=== PATIENT | male | born 1955 | race Caucasian/White ===

== ENCOUNTER → 2020-06-14 13:35 | Outpatient (CLI) | payer BC, SELFPAY ==
--- NOTE | ~2020-06-14 | CT_ITS ---
EXAMINATION: CT abdomen pelvis wo/w con DATE: 06/14/2020 14:31 INDICATION: Hematuria TECHNIQUE: Computed tomography (CT) of the abdomen and pelvis was performed without intravenous contr ast. CT of the abdomen and pelvis was then performed with a total of 130 mL Omnipaque 350 intravenous contrast using a double-bolus technique for simultaneous opacification of the renal parenchyma and r enal collecting system. The dose-length product (DLP) was 2090.27 mGy-cm. Automated exposure control and iterative reconstruction technique were employed. COMPARISON: None FINDINGS: The lung bases are clear. The heart size is normal. Liver, spleen, pancreas, gallbladder, a nd adrenal glands are normal. No stones are identified in the kidneys, ureters, or bladder. There is no hydronephrosis or hydroureter. There is no hydronephrosis or hydroureter. No suspicious renal or u rothelial lesion is identified. No pathologically enlarged abdominal or pelvic lymph nodes are identi fied. There is no free intraperitoneal gas or evidence of bowel obstruction. There is moderate lumbar spondylosis at L5-S1. Small sclerotic lesions in the T11 and L1 vertebral bodies likely reflect bone islands. There is a fat-containing left inguinal hernia. IMPRESSION: 1. No CT correlate for the patient's symptoms. No urinary tract calculi, hydronephrosis, hydroureter, or suspicious renal or urothelial lesion. Reviewed, dictated and finalized at location A. IMPRESSION: 1. No CT correlate for the patient's symptoms. No urinary tract calculi, hydron ephrosis, hydroureter, or suspicious renal or urothelial lesion.
[2020-06-14 14:06] LABS: Estimated Glomerular Filt Rate 56
== END ==
PROVIDERS: PCP Family Medicine; Visit Provider Physician Assistant
DX: R31.9 Hematuria, unspecified (principal)
CPT/HCPCS: 36415; 74178; Q9967

== ENCOUNTER 2023-12-29 11:43 | Outpatient (CLI) | payer MEDICARE, SELFPAY ==
--- NOTE | 2023-12-29 12:52 | ECG_ITS ---
Measurements Intervals [place] Rate: 46 P: 38 ME: 158 QRS: 56 QRSD: 100 T: 55 QT: 418 QTc: 367 Interpretive Statements SINUS BRADYCARDIA WITH SINUS ARRHYTHMIA BORDERLINE ECG NO PREVIOUS ECG AVAILABLE FOR COMPARISON Electronically Signed On 12-29-2023 16:58:59 GARBAGE WORKER by Osmany Brito M.D.
[2023-12-29 13:14] LABS: Basophils Absolute Auto 0.1 K/mm3 (0.0-0.1); Basophils Percent Auto 0.7 % (0.2-1.2); Eosinophils Absolute Auto 0.3 K/mm3 (0-0.3); Eosinophils Percent Auto 3.8 % (0-4.4); Hematocrit 43.6 % (42.0-52.0); Hemoglobin 14.5 g/dL (14.0-18.0); Immature Granulocyte Absolute 0.02 K/mm3 (0.00-0.031); Immature Granulocyte Percent A 0.2 % (0-0.5); Lymphocytes Percent Auto 25.1 % (18.3-44.2); Mean Corpuscular HGB Conc 33.3 g/dl (32-36); Mean Corpuscular Hemoglobin 30.8 pg (26-34); Mean Corpuscular Volume 92.6 fl (80-100); Mean Platelet Volume 10.1 fl (7.4-10.4); Monocytes Absolute Auto 0.7 K/mm3 (0.1-0.6); Monocytes Percent Auto 8.4 % (2.6-8.5); Neutrophils Absolute Auto 5.2 K/mm3 (1.3-6.7); Neutrophils Percent Auto 61.8 % (45.5-73.1); Platelet Count Result 183 k/mm3 (150-375); Red Blood Count 4.71 M/mm3 (4.6-6.20); White Blood Count 8.4 K/mm3 (4.5-10.0)
[2023-12-29 13:22] LABS: INR 1.1; Prothrombin Time 14.7 Seconds (11.1-14.7)
[2023-12-29 13:23] LABS: Partial Thromboplastin Time 29.6 SECONDS (22.3-36.8)
[2023-12-29 13:28] LABS: Alanine Aminotransferase 38 U/L (6-50); Albumin Level 4.3 g/dL (3.5-5.1); Alkaline Phosphatase 106 U/L (38-126); Anion Gap 6 mmol/L (8-16); Aspartate Amino Transferase 35 U/L (17-59); Bilirubin,Total 0.6 mg/dL (0.2-1.3); Blood Urea Nitrogen 21 mg/dL (9-20); Calcium 9.8 mg/dL (8.4-10.2); Carbon Dioxide 31 mmol/L (22-30); Chloride 100 mmol/L (98-107); Estimated Glomerular Filt Rate 51; Glucose 114 mg/dL (65-110); Potassium 4.2 mmol/L (3.4-5.0); Sodium 137 mmol/L (137-145)
== END 2023-12-29 11:44 | disposition home or self-care (01) ==
LOC: ANHSURGERY 11:50
PROVIDERS: PCP Internal Medicine; Visit Provider Urology
DX: C61 Malignant neoplasm of prostate (principal); I10 Essential (primary) hypertension; Z01.818 Encounter for other preprocedural examination; R94.31 Abnormal electrocardiogram [ECG] [EKG]
CPT/HCPCS: 36415; 80053; 85025; 85610; 85730; 87086; 93005

== ENCOUNTER 2024-01-13 16:30 | Inpatient (IN) | payer MEDICARE, SELFPAY ==
[2023-12-29 12:03] VITALS: BP 131/61; PULSE 42; RESP 16; TEMP 36.8; O2SAT 99; BMI 29.0
--- NOTE | 2023-12-29 12:21 | PC.NURSE ---
Report to the Outpatient Waiting Room, entrance under the green pavilion located off [facility], at time ___6:00AM____ on date __01/13/24 . Planned Procedure Time: __7:30AM . Time changes happen often and if your time is changed the preop area will call you the afternoon before. - You and your visitor will be asked to self-screen and do not enter if you have any COVID symptoms. - A mask is optional within the hospital at this time. Patients may have clear liquids (water, carbonated beverages, clear teas, apple juice) until 3 hours prior to surgery with a maximum of 20 ounces. - No food from midnight until time of surgery. Take the following medications with a SIP of water the morning of surgery: ___NONE DO NOT STOP ANY OF YOUR OTHER PRESCRIPTION MEDICATIONS PRIOR TO SURGERY ?EXCEPT THE FOLLOWING Medications to discontinue per physician ____HOLD ALL VITAMINS/SUPPLEMENTS 7 DAYS PRE-OP Date to take last dose___01/06/24 Please no make-up, nail spanish, hairspray, perfume, deodorant, or body powder the day of surgery. No jewelry (including any body piercings) or valuables the day of surgery, leave them at home. Please take a shower or bath the night before, or the morning of, surgery with an antibacterial soap. Wear comfortable, loose fitting clothing. - Jewelry must be removed prior to entering the operating room. Rings and piercings that are not removed may be cut off. - The hospital will not accept responsibility for valuables. - Please leave all valuables, including medications, at home the day of surgery. If you are going home after surgery, a licensed o[employer] hazmat company driver must drive you home. - NO public transportation without another adult if you receive anesthesia. - We recommend that an adult stay with you for 24 hours following discharge. - We also recommend that you do not drive, make important decision, drink alcoholic beverages, or take any drugs that were not prescribed by your health care provider for at least 24 hours after your discharge time. Follow any additional instructions given to you from your surgeon. If you or anyone in your household have experienced Covid symptoms in the past week, please notify your surgeon or the nurse liaison at the phone number below for possible testing. Telephone instructions given to ___PATIENT & WIFE and asked if any additional questions and then verbalized understanding. Patient advised to call surgeon office or pre surgery nurse liaison [phone] if any additional questions.
[2024-01-13] VITALS (14 sets, daily range): BP systolic 99–158; BP diastolic 61–80; PULSE 47–72; RESP 11–18; TEMP 36.2–37.1; O2SAT 96–100
[2024-01-13] MEDS: LACTATED RINGERS 1,000 ML 30 ML IV CONT ×2 (07:00→13:30)
--- NOTE | 2024-01-13 07:05 | WPDHPUPDATE1 ---
History and Physical Update Update Date/Time: 01/13/24 07:05 History and Physical has been reviewed, including an updated exam of the patient. There are NO changes in the patient's condition. Risks, benefits, and alternatives have been discussed and questions answered. Patient agrees to proceed with procedure. Proceed with robotic assist nerve sparing prostatectomy with possible plnd.
--- NOTE | 2024-01-13 07:13 | WPDANESEPPF ---
Anes - Initial Pre Proc Eval Procedure: Operation Date: 01/13/24 07:30 Proposed Procedures p Robotic Nerve Sparing Prostatectomy with Pelvic Lymph Node Dissection - Ayaz Norton MD Date/Time: 01/13/24 07:13 Surgeon: Ayaz Norton MD Pre Op Diagnosis: prostate cancer Patient Data Age: 68 Gender: M Height: 1.71 m Weight: 85.2 kg Last Vital Signs Temp 98.2 F 12/29/23 12:03 Pulse 42 L 12/29/23 12:03 Resp 16 12/29/23 12:03 BP 131/61 12/29/23 12:03 Pulse Ox 99 12/29/23 12:03 O2 Del Method Room Air 12/29/23 12:03 Allergies Allergy/AdvReac Type Severity Reaction Status Date / Time lisinopril AdvReac Unknown Cough Verified 12/29/23 11:58 Home Medications Medication Instructions Recorded Confirmed Type rosuvastatin 5 mg tablet (Crestor) 5 mg PO DAILY #90 tabs 07/10/20 12/29/23 Rx ascorbic acid (vitamin C) 500 mg 500 mg PO 5XW 12/29/23 12/29/23 History capsule cholecalciferol (vitamin D3) 50 50 mcg PO 5XW 12/29/23 12/29/23 History mcg (2,000 unit) capsule multivitamin 1 tablet PO 2XW 12/29/23 12/29/23 History valsartan 80 1 tablet PO QAM 12/29/23 12/29/23 History mg-hydrochlorothiazide 12.5 mg tablet zinc 25 mg tablet 30 mg PO 5XW 12/29/23 12/29/23 History Patient hx anesthesia problems: none Family hx anesthesia problems: none Results Review: All pre-operative results and documents have been reviewed as part of the pre-operative evaluation. [facility] Family History Family History Mother Diabetes mellitus Family history of obesity Depression Hypertension Father Patient's father is in good health Grandparent Carcinoma of colon Social History Social History Smoking status: Never smoker Alcohol intake: current Living arrangements: with family Additional living arrangements comments: Spiritual care concerns: No Anes - Eval Final PreProcedure Day of Procedure 01/13/24 07:13 Patient weight: normal Heart: bradycardia Lungs: clear to auscultation Airway: Mallampati scale class III Neurological: alert and oriented Last oral intake: >/= 8 hours ASA classification: III Emergent: no Anesthetic plan: proceed Anesthesia type and monitoring: general ETT and standard monitoring Results Review: All pre-operative results and documents have been reviewed as part of the pre-operative evaluation. Informed Consent: The patient's anesthetic plan and its attendant risks and benefits were discussed with the patient/family/POA. Questions were solicited and answers provided to the satisfaction of the patient/family/POA.
[2024-01-13] MEDS: ceFAZolin 2 GM/D5W 50 ML 2 GM/50 ML BAG IVPB (07:36)
[2024-01-13] MEDS: BUPivacaine HCL 0.5% 10 ML AMP 30 ML INFILTRATE (08:45)
[2024-01-13] MEDS: ceFAZolin SODIUM 1 GM VIAL IV PUSH (11:29)
--- NOTE | 2024-01-13 13:02 | W.PM.PROC2 ---
Procedure Note - Detailed Date of Procedure 01/13/24 Pre-op Diagnosis prostate cancer Post-op Diagnosis Same Procedure Performed Extensive adhesiolysis, robotic assisted nerve-sparing prostatectomy with left pelvic lymph node dissection Surgeon Ayaz Norton MD Anesthesia General Description of Procedure Patient is taken to the operative suite correctly identified. Once anesthesia was obtained was placed in dorsal lithotomy position prepped draped usual sterile fashion. Sixteen Hungarian Polanco was inserted the bladder. Supraumbilical incision was made carried down to the rectus fascia. Veress needle was inserted the abdomen was insufflated to 15 mm of pressure. Camera port was placed under direct vision. Upon placing the camera was noted they had a significant amount of omental adhesions to the anterior abdominal wall essentially encompassing the entire right side of the abdomen. As such I placed our working ports on the left. I was able to reposition the camera in find safe area to place the other 2 working ports on the right. These were placed. Patient was placed in steep Trendelenburg position and the robot was docked. Attention was then given to the [place]. All of these adhesions of the omentum were taken down. Was then noted that his colon was also adhered to the right lateral wall. This also was taken down. A posterior approach was then performed. Seminal vesicles were dissected out in their entirety in the vas were transected. The plane between the prostate and rectum was developed. His anatomy was distorted from the significant amount of adhesions to the above to her abdominal wall. We still were able to take down the bladder in a standard fashion. Space of Retzius was developed bilaterally. Puboprostatic were taken down the dorsal venous complex was isolated using 0 Vicryl. This was secured to the pubic bone which was protuberant. Patient has an extremely large prostate. The bladder neck was difficult to visualize initially. We were able take this down to the bladder neck and perform a bladder neck sparing procedure. Posterior fascia was incised to expose the previously dissected seminal vesicles and vas. Pedicles were taken and clipped. Bilateral nerve-sparing was performed. Prostate was then dissected all the way to the location of the dorsal venous complex. Dorsal venous complex was transected. Urethra was transected. Specimen was placed in Endo-Catch bag. Pelvic lymph node was then does performed on the left side with the boundaries being obturator nerve, external iliac vein, Dayton's ligament, and bifurcation of the vessels. Surgicel was placed in the obturator fossa. Specimen was placed in Endo-Catch bag. A Heber stitch was then placed using 0 Vicryl. Urethral stump was anastomosed to the bladder neck. There was good approximation of mucosa. Sixteen Hungarian Polanco was placed with 10 cc in the balloon. The bladder irrigated well without any evidence of extravasation. PAULIE drain was placed through the 4th working port site. All lap count needle counts sponge counts were correct. The robot was undocked. The midline incision was extended and the specimen was brought out through that. Rectus fascia was closed using 0 Vicryl running fashion. Subcuticular stitches were placed. Patient tolerated procedure well without any complications was taken recovery stable condition. This completes dictation. Please send a copy of op note to my office. Estimated Blood Loss 100 Drains Yes Packing No Pathology Yes Complications No immediate complications Condition Stable Disposition PACU
[2024-01-13] MEDS: PROPARACAINE HCL 0.5% 15 ML OPHTH SOLN 1 DROP EACH EYE (14:38)
[2024-01-13] MEDS: ARTIFICIAL TEARS OPHTH SOLN 15 ML BOTTLE 1 DROP EACH EYE ×2 (14:42→16:43)
[2024-01-13] MEDS: DICLOFENAC SODIUM 0.1% OPHTH SOLN 2.5 ML BOTTLE 1 DROP EACH EYE ×2 (14:42→20:23)
[2024-01-13 14:59] LABS: Glucose Point of Care 190 mg/dl (65-105)
--- NOTE | 2024-01-13 14:59 | SUR.PHASEI ---
1455: Patient meets PACU discharge criteria, unit bed unavailable at this time. Patient placed in extended recovery status.
[2024-01-13] MEDS: LACTATED RINGERS 1,000 ML 125 ML IV CONT (16:43)
[2024-01-13] MEDS: DOCUSATE SODIUM 100 MG CAPSULE PO (16:59)
[2024-01-13] MEDS: HYDROcodone/acetaminophen (*CRX) 5-325 MG TABLET 2 TAB PO (20:22)
[2024-01-13] MEDS: MORPHINE SULFATE (*CRX) 2 MG/ML INJ 1 MG IV PUSH ×2 (20:23→22:17)
[2024-01-13] MEDS: KETOROLAC 15 MG/ML VIAL (*BKC) IV PUSH (22:21)
[2024-01-14 02:15] VITALS: BP 132/53; PULSE 62; RESP 14; TEMP 36.9; O2SAT 100
[2024-01-14] MEDS: HYDROcodone/acetaminophen (*CRX) 5-325 MG TABLET 2 TAB PO ×2 (02:40→14:04)
[2024-01-14] MEDS: MORPHINE SULFATE (*CRX) 2 MG/ML INJ 1 MG IV PUSH (02:40)
[2024-01-14] MEDS: DICLOFENAC SODIUM 0.1% OPHTH SOLN 2.5 ML BOTTLE 1 DROP EACH EYE ×2 (05:44→14:59)
[2024-01-14 05:46] VITALS: BP 112/63; PULSE 60; RESP 13; TEMP 37.1; O2SAT 97
[2024-01-14 06:03] LABS: Hemoglobin 12.4 g/dL (14.0-18.0)
[2024-01-14 06:59] LABS: Anion Gap 7 mmol/L (8-16); Blood Urea Nitrogen 28 mg/dL (9-20); Calcium 8.7 mg/dL (8.4-10.2); Carbon Dioxide 26 mmol/L (22-30); Chloride 95 mmol/L (98-107); Estimated CRCL calculation 44 ml/min; Estimated Glomerular Filt Rate 51; Glucose 193 mg/dL (65-110); Potassium 4.2 mmol/L (3.4-5.0); Sodium 128 mmol/L (137-145)
--- NOTE | 2024-01-14 07:49 | WPDUROPN2 ---
Progress Note: A&P Assessment and Plan (1) Adenocarcinoma of prostate: Code(s): C61 - Malignant neoplasm of prostate Status: Acute Assessment and Plan: increase ambulation. Doing well overall except for the discomfort from the insufflation gas. Will re-evaluate this afternoon. hopefully will remain removed PAULIE drain and discharged home later today or in a.m. depending on his discomfort. Cystogram in 1 week. Subjective Subjective Date/Time Seen: 01/14/24 07:49 Post Op day: 1 (Robotic assisted nerve-sparing prostatectomy with extensive adhesiolysis) Principal diagnosis: adenocarcinoma prostate Interval history: Nhan had quite a bit of discomfort from the insufflation gas with some right shoulder pain. He is feeling slightly better today. Urine output adequate with minimal PAULIE output. He has been ambulating without difficulty. Review of Systems Review of Systems: All systems reviewed & are unremarkable except as noted in HPI and below Exam Const: General: cooperative Chest: Chest palpation & inspection: normal inspection of the chest Resp: Effort & Inspection: normal respiratory effort Cardio: Rate: regular rate Rhythm: regular rhythm Urinary Catheter: Urinary Catheter: patent and draining and urine clear Objective Data Vital Signs Vital Signs: Vital Signs - 24 hr 01/13/24 13:30 01/13/24 13:45 01/13/24 14:00 Temperature 36.4 C L Pulse Rate 60 58 L 62 Respiratory Rate 11 L 16 12 Blood Pressure 120/69 140/73 142/73 H Pulse Oximetry 100 100 100 Oxygen Delivery Simple Face Mask Simple Face Mask Simple Face Mask Oxygen Flow Rate 8 8 8 01/13/24 14:15 01/13/24 14:30 01/13/24 14:45 Temperature Pulse Rate 62 65 66 Respiratory Rate 15 13 Blood Pressure 138/70 151/76 H 143/80 H Pulse Oximetry 99 100 99 Oxygen Delivery Simple Face Mask Room Air Room Air Oxygen Flow Rate 8 01/13/24 15:30 01/13/24 15:00 01/13/24 16:00 Temperature 36.2 C L Pulse Rate 62 58 L 64 Respiratory Rate 17 12 16 Blood Pressure 143/69 H 129/74 139/64 Pulse Oximetry 96 99 100 Oxygen Delivery Room Air Room Air Oxygen Flow Rate 01/13/24 16:15 01/13/24 16:45 01/13/24 17:45 Temperature 36.2 C L 36.2 C L 36.4 C Pulse Rate 70 67 72 Respiratory Rate 16 18 18 Blood Pressure 158/76 H 142/61 H 139/70 Pulse Oximetry 97 99 98 Oxygen Delivery Oxygen Flow Rate 01/13/24 21:28 01/13/24 20:00 01/14/24 02:15 Temperature 37.1 C 36.9 C Pulse Rate 70 62 Respiratory Rate 14 14 Blood Pressure 99/76 L 132/53 L Pulse Oximetry 96 100 Oxygen Delivery Room Air Oxygen Flow Rate 01/14/24 05:46 Temperature 37.1 C Pulse Rate 60 Respiratory Rate 13 Blood Pressure 112/63 Pulse Oximetry 97 Oxygen Delivery Oxygen Flow Rate Intake/Output Intake/Output: Intake & Output 01/11/24 01/12/24 01/13/24 01/14/24 23:59 23:59 23:59 23:59 Intake Total 200 3500 Output Total 190 620 Balance 10 2880 Meds/Results Medications: Active Medications Generic Name Dose Route Start Last Admin Trade Name Freq PRN Reason Stop Dose Admin Hydrocodone Bitart/Acetaminophen 2 tab 01/13/24 16:30 01/14/24 02:40 Hydrocodone/Acetaminophen (*Crx) 5-325 Mg Tablet PO 2 tab Q6H PRN Administration Pain Rated 4-6 Artificial Tears 1 drop 01/13/24 14:34 01/13/24 16:43 Artificial Tears Ophth Soln 15 Ml Bottle EACH EYE 1 drop Q2H PRN Administration Dry Eye(s) Diclofenac Sodium 1 drop 01/13/24 22:00 01/14/24 05:44 Diclofenac Sodium 0.1% Ophth Soln 2.5 Ml Bottle EACH EYE 1 drop Q8HR SANDRA Administration Docusate Sodium 100 mg 01/13/24 17:00 01/13/24 16:59 Docusate Sodium 100 Mg Capsule PO 100 mg BID SANDRA Administration Hydrochlorothiazide 12.5 mg 01/14/24 09:00 Hydrochlorothiazide 12.5 Mg Capsule PO QAM SANDRA Hyoscyamine 0.125 mg 01/13/24 16:30 Hyoscyamine Sulfate 0.125 Mg Tablet SUBLINGUAL Q4H PRN Bladder Spasm Lact
[2024-01-14 08:00] VITALS: BP 125/57; PULSE 56; RESP 18; TEMP 36.4; O2SAT 100
[2024-01-14] MEDS: DOCUSATE SODIUM 100 MG CAPSULE PO (09:41)
[2024-01-14] MEDS: levoFLOXacin 500 MG TABLET PO (09:41)
[2024-01-14] MEDS: ROSUVASTATIN 5 MG TABLET PO (09:42)
[2024-01-14] MEDS: VALSARTAN 80 MG TABLET PO (09:42)
[2024-01-14] MEDS: hydroCHLOROthiazide 12.5 MG CAPSULE PO (09:42)
[2024-01-14 12:00] VITALS: BP 123/62; PULSE 85; RESP 20; TEMP 36.6; O2SAT 97
--- NOTE | 2024-01-14 14:42 | WPDANESPN ---
Anes - Prog Note Post-Op Date/Time: 01/14/24 14:42 Cardiovascular status: normal Respiratory status: normal Airway patency: baseline Mental status: baseline Post-Op hydration status: normal Vital Signs: Last Vital Signs Temp 97.8 F 01/14/24 12:00 Pulse 85 01/14/24 12:00 Resp 20 01/14/24 12:00 BP 123/62 01/14/24 12:00 Pulse Ox 97 01/14/24 12:00 O2 Del Method Room Air 01/14/24 09:45 O2 Flow Rate 8 01/13/24 14:15 Pain Score (VAS): 0/10 I/O: Intake & Output 01/13/24 01/14/24 01/14/24 23:59 07:59 15:59 Intake Total 200 3500 222 Output Total 50 620 700 Balance 150 2880 -478 Laboratory Tests 01/14/24 05:44 01/14/24 05:44 01/13/24 01/14/24 13:55 05:44 Hgb 12.4 L Hct 37.0 L Sodium 128 L Potassium 4.2 Chloride 95 L Carbon Dioxide 26 Anion Gap 7 L BUN 28 H Creatinine 1.40 H Estim Creat Clear Calc 44 Estimated GFR 51 L Glucose 193 H POC Capillary Glucose 190 H Calcium 8.7 Post-procedural complaints: none Patient Feedback: Patient satisfied with anesthetic care.
--- NOTE | 2024-01-14 15:03 | PM.DS ---
DS: Admitting Diagnosis Discharge Date 01/14/24 Admitting Diagnosis Prostate cancer DS: Discharge Diagnosis Discharge Diagnosis (1) Adenocarcinoma of prostate: Code(s): C61 - Malignant neoplasm of prostate Status: Acute DS: Summary Hospital Course Hospital Course: Date of admission: 01/13/2024 Date of discharge: 01/14/2024 Nhan Bundy is a 68 year old male with a history of prostate cancer who was admitted on 01/13/2024 and underwent adhesiolysis, robotic assisted nerve-sparing prostatectomy with left pelvic lymph node dissection by Dr. Norton. He tolerated this procedure well. He had some pain from gas insufflation postoperatively but this improved. He was able to ambulate without difficulty. He was able to tolerate his diet. His pain was well controlled and he felt comfortable with discharge home. His PAULIE drain had minimal output and was removed. He will continue his العراقي catheter on discharge. He will follow up with Dr. Norton in 1 week for العراقي removal after completion of cystogram. He will take bactrim once daily for the next week. Short course of prn analgesics provided. Discussed return precautions as well as follow up plans. He and his are aware and comfortable with discharge plans. Time Spent with Patient Time attestation: Total time spent providing and/or coordinating discharge services: Exam Narrative: General: Awake, alert, comfortable, no acute distress HEENT: Normocephalic, atraumatic, sclerae anicteric Respiratory: Normal respiratory effort, no accessory muscle use Abdomen: Nondistended, soft, nontender : PAULIE drain with minimal bloody output, العراقي catheter draining clear yellow urine Skin: Normal coloration, warm and dry Neurologic: No focal neuro deficits noted Psychiatric: Appropriate mood and affect, judgment and insight intact DS: Data Data Completed and Pending Pending studies at discharge: Pending at discharge 01/13/24 12:47 Surgical [PTH] Routine Labs on day of discharge: Labs from last 24 hours 01/14/24 05:44 Hgb 12.4 L Hct 37.0 L Sodium 128 L Potassium 4.2 Chloride 95 L Carbon Dioxide 26 Anion Gap 7 L BUN 28 H Creatinine 1.40 H Estim Creat Clear Calc 44 Estimated GFR 51 L Glucose 193 H Calcium 8.7 Discharge Plan Discharge Attending physician on discharge: Ayaz Norton Discharging Clinician: Altagracia Barbosa Patient Disposition: Home, Self-Care Activity: other - see discharge instructions Diet: regular Discharge Instructions: Continue العراقي catheter Follow up on 01/22/24 for cystogram and appointment with Dr. Norton Avoid lifting >10 pounds until follow up You can take tylenol as needed for mild pain and tramadol as needed for moderate-severe pain. Take Bactrim once daily for the next 7 days. Patient Instructions: Antibiotic Form Stand Alone Forms: General Discharge Information Follow-up/Referrals: Ayaz Norton MD [Physician] - 01/22/24 1:00 pm Discharge Medications: New docusate sodium 100 mg Capsule 100 mg PO BID Qty: 20 0RF sulfamethoxazole-trimethoprim [Bactrim DS] 800-160 mg tablet 1 tablet PO DAILY Qty: 7 0RF hydrocodone-acetaminophen 5-325 mg Tablet 1 tablet PO Q6H PRN (Reason: Pain Rated 4-6) Qty: 20 0RF Continued multivitamin Tablet 1 tablet PO 2XW zinc 25 mg Tablet 30 mg PO 5XW cholecalciferol (vitamin D3) 50 mcg (2,000 unit) Capsule 50 mcg PO 5XW ascorbic acid (vitamin C) 500 mg Capsule 500 mg PO 5XW valsartan-hydrochlorothiazide 80-12.5 mg tablet 1 tablet PO QAM Rx Instructions: TAKE 1 TABLET BY MOUTH EVERY DAY rosuvastatin [Crestor] 5 mg tablet 5 mg PO DAILY Qty: 90 3RF Date of admission: 01/13/24 16:30 Primary Care Provider: MichToya Admitting Provider: Ayaz Norton Attending physician on admission: Ayaz Norton Condition: Improved
== END 2024-01-14 16:00 | disposition home or self-care (01) | DRG 708 ==
LOC: ANH3MEDSUR 16:33
PROVIDERS: Admitting Provider Urology; PCP Internal Medicine; Visit Provider Physician Assistant
PROC: 0VT04ZZ Resection of Prostate, Percutaneous Endoscopic Approach (ICD-10-PCS; CPT 55867; principal; 2024-01-13 07:30)
DX: C61 Malignant neoplasm of prostate (principal)
CPT/HCPCS: 36415; 80048; 82948; 85014; 85018; 86850; 86900; 86901; 88305; 88309; A9270; J0690; J1100; J1170; J1885; J2250; J2270; J2405; J2704; J3010; J7030; J7120

== ENCOUNTER 2024-01-22 11:30 | Outpatient (CLI) | payer MEDICARE, SELFPAY ==
--- NOTE | ~2024-01-22 | XR_ITS ---
EXAMINATION: XR cystogram DATE: 01/22/2024 12:35 INDICATION: Malignant neoplasm of prostate. TECHNIQUE: Water-soluble contrast was gravity-infused through the patient's Polanco catheter. Multiple fluoroscopic images were obtained. Fluoroscopy exposure time was 0.1 minutes. The total number of kermit ges was 9. COMPARISON: CT abdomen and pelvis 06/14/2020 FINDINGS: There is a Polanco catheter in expected position. There is no extraluminal leakage of contras t. No ureteral reflux. IMPRESSION: 1. No extraluminal leakage of contrast. Reviewed, dictated and finalized at location A. TING MACHINE OPERATOR
== END 2024-01-22 11:31 | disposition home or self-care (01) ==
PROVIDERS: PCP Internal Medicine; Visit Provider Urology
DX: C61 Malignant neoplasm of prostate (principal)
CPT/HCPCS: 51600; 74430; Q9967

== ENCOUNTER 2025-01-03 07:47 | Outpatient (CLI) | payer MEDICARE, SELFPAY ==
--- OUTSIDE RECORDS SUMMARY | 2025-01-03 07:53 | XMS_ITS | Patient Health Summary ---
Author Organization [facility] Address [address] [place] [address] Care Team Providers Care Quality Assurance Supervisor Name Role Phone Jaye Denny MD Primary Care Provider [phone] Note from [facility],non-owned Affiliates and Associated Physician Practices is amultiple site organization consisting of ambulatory clinics and hospital sitesin [place], [place], [place] and [place]. This disclosure is being madepursuant to the Care Everywhere program and may not contain all information available regarding this patient. Last updated 18.[facility] Allergies No known active allergies Medications * Be aware that medications may not be up to date on this document. Alwaysverify current medications with the patient. * Multiple Vitamins-Minerals (MULTIVITAMIN ADULT PO) Take by mouth Two times a week * aspirin (ASPIRIN) 81 MG tablet Take 81 mg by mouth once daily as needed for Pain 3-4 times weekly * valsartan-hydroCHLOROthiazide (DIOVAN HCT) 80-12.5 MG tablet(Started 09/08/2019) * rosuvastatin (CRESTOR) 5 MG tablet Take 5 mg by mouth once daily Active Problems Problem Noted Date Diagnosed Date Elevated liver enzymes 04/06/2018 Immunizations * INFLUENZA VACCINE, QUADR. (FLUZONE; FLULAVAL; FLUARIX; AFLURIA QUADRIVALENT; 6MO+), 0.5 ML (IIV4)(Given 08/26/2021, 09/04/2020, 09/14/2019) Social History Tobacco Use Types Packs/Day Years Used Date Smoking Tobacco: Never Smokeless Tobacco: Never Alcohol Use Standard Drinks/Week Comments No 0 (1 standard drink = 0.6 oz pur e alcohol) stopped 1 year ago. Sex and Gender Information Value Date Recorded Sex Assigned at Not on file Gender Identity Not on file Sexual Orientation Not on file Last Filed Vital Signs Vital Sign Reading Time Taken Comments Blood Pressure 119/73 01/17/2020 2:41 PM RETAIL MARKETING MANAGER Pulse 51 01/17/2020 2:41 PM RETAIL MARKETING MANAGER Temperature 36.8 C (98.2 F) 01/17/2020 2:41 PM RETAIL MARKETING MANAGER Respiratory Rate 18 01/17/2020 2:41 PM RETAIL MARKETING MANAGER Oxygen Saturation 99% 01/17/2020 2:41 PM RETAIL MARKETING MANAGER Inhaled Oxygen Concentration - - Weight 89.8 kg (198 lb) 01/17/2020 2:41 PM RETAIL MARKETING MANAGER Height 170.2 cm (5' 7 ) 09/09/2019 9:11 AM CDT Body Mass Index 31.01 09/09/2019 9:11 AM CDT Procedures * COMPREHENSIVE METABOLIC PANEL(Performed 01/14/2020) Performed for Hepatic steatosis * CBC W AUTO DIFFERENTIAL(Performed 01/14/2020) Performed for Hepatic steatosis * CBC W AUTO DIFFERENTIAL(Performed 08/17/2019) * COMPREHENSIVE METABOLIC PANEL(Performed 08/17/2019) * GGT(Performed 08/17/2019) * CBC W AUTO DIFFERENTIAL(Performed 06/02/2019) * COMPREHENSIVE METABOLIC PANEL(Performed 06/02/2019) * GGT(Performed 06/02/2019) * COMPREHENSIVE METABOLIC PANEL(Performed 11/13/2018) Performed for Elevated liver enzymes * FERRITIN(Performed 11/13/2018) Performed for Elevated liver enzymes * DERMATOPATH TECHNICAL REPORT(Performed 10/12/2018) * MRI ABDOMEN W MRCP WWO CONT W3D(Performed 06/16/2018) Performed for Elevated liver enzymes * CREATININE BLOOD - POCT (IP) [facility](Performed 06/16/2018) Performed for Elevated liver enzymes * NUCLEOTIDASE 5-(Performed 04/06/2018) Performed for Elevated liver enzymes * GGT(Performed 04/06/2018) Performed for Elevated liver enzymes * XMHJH-6-CHYKOSNEFTP BLOOD PHENOTYPING PANEL(Performed 04/06/2018) Performed for Elevated liver enzymes * HEPATITIS C ANTIBODY(Performed 04/06/2018) Performed for Elevated liver enzymes * HEPATITIS B CORE ANTIBODY TOTAL(Performed 04/06/2018) Performed for Elevated liver enzymes * HEPATITIS B SURFACE ANTIGEN W RFLX CONFIRMATION(Performed 04/06/2018) Performed for Elevated liver enzymes * HEPATITIS A ANTIBODY(Performed 04/06/2018) Performed for Elevated liver enzymes * MICROSOMAL ANTIBODY LIVER/KIDNEY(Performed 04/06/2018) Performed for Elevated liver enzymes * SMOOTH MUSCLE ANTIBODY(Performed 04/06/2018) Performed for Elevated liver enzymes * MITOCHONDRIAL ANTIBODY SCREEN(Performed 04/06/2018) Performed for Elevated liver enzymes * EDITH BLOOD SCREEN W/REFLEX TITER(Performed 04/06/2018) Performed for Elevated liver enzymes * FERRITIN(Performed 04/06/2018) Performed for Elevated liver enzymes * PT-INR [facility](Performed 04/06/2018) Performed for Elevated liver enzymes * COMPREHENSIVE METABOLIC PANEL(Performed 04/06/2018) Performed for Elevated liver enzymes * CBC W AUTO DIFFERENTIAL(Performed 04/06/2018) Performed for Elevated liver enzymes Results * CBC WITH DIFFERENTIAL (01/14/2020 8:07 AM RETAIL MARKETING MANAGER) Only the most recent of4 resultswithin the time period is included. White Blood Cell Count 7.3 3.8 - 10.8 Thousand/u L [facility] RBC 5.08 4.20 - 5.80 Million/uL [facility] Hemoglobin 16.1 13.2 - 17.1 g/dL [facility] Hematocrit 46.1 38.5 - 50.0 % [facility] MCV 90.7 80.0 - 100.0 fL [facility] MCH 31.7 27.0 - 33.0 pg [facility] MCHC 34.9 32.0 - 36.0 g/dL [facility] RDW 12.8 11.0 - 15.0 % [facility] Platelet Count 199 140 - 400 Thousand/u L [facility] MPV 10.8 7.5 - 12.5 fL [facility] Neutrophil Absolute 4395 1500 - 7800 cells/uL [facility] Lymphocytes Absolute 1810 850 - 3900 cells/uL [facility] Absolute Monocytes 774 200 - 950 cells/uL [facility] Eosinophils Absolute 248 15 - 500 cells/uL [facility] Basophils Absolute 73 0 - 200 cells/uL [facility] Granulocytes % 60.2 % [facility] Lymphocytes % 24.8 % [facility] Monocytes % 10.6 % [facility] Eosinophils % 3.4 % [facility] Basophils % 1.0 % [facility] Comment: REPORT COMMENT: FASTING:YES Test Performed at: [facility] [address] [facility] [address] CHARLIE ECKERT DO,MPH Blood BLOOD SPECIMEN / Unknown 01/14/2020 8:07 AM RETAIL MARKETING MANAGER 01/14/2020 8:08 AM RETAIL MARKETING MANAGER Morgan Baxter MD LAB - HEMATOLOGY ORD ERABLES [facility] [address] [place] [address] * (ABNORMAL) COMPREHENSIVE METABOLIC PANEL (01/14/2020 8:07 AM RETAIL MARKETING MANAGER) Only the most recent of5 resultswithin the time period is included. Glucose 134(H) 65 - 99 mg/dL [facility] Comment: Fasting reference interval For someone without known diabetes, a glucose value >125 mg/dL indicates that they may have diabetes and this should be confirmed with a follow-up test. BUN 18 7 - 25 mg/dL [facility] Creatinine 1.37(H) 0.70 - 1.25 mg/dL [facility] Comment: For patients >49 years of age, the reference limit for Creatinine is approximately 13% higher for people identified as -Kenyan. eGFR by MDRD 55(L) > OR = 60 mL/min/1. 73m2 [facility] eGFR by MDRD 64 > OR = 60 mL/min/1. 73m2 [facility] BUN/Creatinine Ratio 13 6 - 22 (calc) [facility] Sodium 139 135 - 146 mmol/L [facility] Potassium 4.5 3.5 - 5.3 mmol/L [facility] Chloride 101 98 - 110 mmol/L [facility] CO2 32 20 - 32 mmol/L [facility] Calcium 9.5 8.6 - 10.3 mg/dL [facility] Protein Total 7.0 6.1 - 8.1 g/dL [facility] Albumin 4.4 3.6 - 5.1 g/dL [facility] Globulin Total 2.6 1.9 - 3.7 g/dL (calc) [facility] Albumin/Globulin Ratio 1.7 1.0 - 2.5 (calc) [facility] Bilirubin Total 1.0 0.2 - 1.2 mg/dL [facility] Alkaline Phosphatase 137 35 - 144 U/L [facility] AST 26 10 - 35 U/L [facility] ALT 35 9 - 46 U/L [facility] Comment: Test Performed at: [employer] [address] [place] [address] CHARLIE ECKERT DO,MPH Blood BLOOD SPECIMEN / Unknown 01/14/2020 8:07 AM RETAIL MARKETING MANAGER 01/14/2020 8:08 AM RETAIL MARKETING MANAGER Morgan Baxter MD LAB - CHEMISTRY [place] Performing Organization Address [facility] Co de Phone Number [facility] [address] [place] [address] * (ABNORMAL) GGT (08/17/2019 7:12 AM CDT) Only the most recent of3 resultswithin the time period is included. GGT 213(H) 3 - 70 U/L [facility] Comment: Test Performed at: [facility] [id number] CHARLIE ECKERT DO,MPH 08/17/2019 7:12 AM CDT 08/17/2019 7:13 AM CDT Morgan Baxter MD LAB - CHEMISTRY [place] Performing Organization Address [facility] de Phone Number [facility] [id number] [place] [address] * FERRITIN (11/13/2018 7:45 AM RETAIL MARKETING MANAGER) Only the most recent of2 resultswithin the time period is included. Pathologist [facility] Ferritin 221 20 - 380 ng/mL [facility] Comment: REPORT COMMENT: FASTING:YES Test Performed at: [employer] [place] [address] CHARLIE ECKERT DO,MPH Blood BLOOD SPECIMEN / Unknown 11/13/2018 7:45 AM RETAIL MARKETING MANAGER 11/13/2018 7:45 AM RETAIL MARKETING MANAGER Morgan Baxter MD LAB - CHEMISTRY [place] Performing Organization Address [facility] Co de Phone Number [employer] [id number] [place] [address] * DERMATOPATH TECHNICAL REPORT (10/12/2018 12:00 AM RETAIL MARKETING MANAGER) Case Report Dermatopathology Report Case: [id number] Authorizing Provider: Myrtle Perea MD Collected: 10/12/2018 12:00 AM Pathologist: Ava Collier MD Received: 10/19/2018 06:17 AM Specimen: Skin, left lateral hand 10:[address] [facility] DERMATOPATHOLOGY LABORATORY Clinical History VV vs other. Irritated. 10:[address] [facility] DERMATOPATHOLOGY LABORATORY Gross Description Specimen A: Received is one formalin filled container labeled with the patient's name and designated left lateral hand. The specimen consists of a shave measuring [id number]. Jar 0. [facility] Dermatopathology Laboratory performed the technical component only. 10:[address] [facility] DERMATOPATHOLOGY LABORATORY Embedded Images 10:[address] [facility] DERMATOPATHOLOGY LABORATORY DISCLAIMER An external and internal positive and negative controls are appropriate for the histochemical, immunohistochemical and immunofluorescence stain(s) in this case (if any), except where stated explicitly. The performance characteristics of the stain(s) cited in this report were developed and its performance characteristic determined by the Dermatopathology Laboratory at [facility]. These tests need not be, and therefore are not, approved by the [place] Food and Drug Administration. The tests are used for clinical purposes. 10:[address] [facility] DERMATOPATHOLOGY LABORATORY Pathology/Cytolog y TISSUE SPECIMEN FROM SKIN / Unknown 10/12/2018 10/19/2018 6:17 AM RETAIL MARKETING MANAGER Myrtle Perea MD LAB - PATHOLOGY/CYT OLOGY ORDERABLES DERMATOPATHOLOGY LABORATORY [facility] - Department of Dermatology [address] [place] [address] 5th Floor Lab B [address] [phone] * MRI ABDOMEN W MRCP WWO CONT W3D (06/16/2018 7:55 AM CDT) Anatomical Region Laterality Modality Magnetic Resonan ce 06/16/2018 9:59 AM CDT Impressions 06/16/2018 1:56 PM CDT IMPRESSION: 1. Mild diffuse hepatic steatosis. Dictated by Davy Gardner MD (resident program specialist). I, Dr. THADDEUS MCMAHON M.D. have personally reviewed and interpreted this examination/study. This report was electronically signed by THADDEUS MCMAHON M.D. on 06/16/2018 1:56 PM . Narrative 06/16/2018 1:56 PM CDT EXAMINATION: 1. Magnetic resonance imaging (MRI) of the abdomen without and with contrast 2. Magnetic resonance cholangiopancreatography (MRCP) with 3-D reconstruction and analysis HISTORY: 62-year-old male with hepatic steatosis and elevated liver enzymes (GGT), reported history of gallbladder polyp TECHNIQUE: MRI of the abdomen was performed prior to and following the uneventful administration of 17 mL of Multihance intravenous gadolinium contrast according to standard protocol, including dynamic imaging for MRCP. Image data was analyzed on a dedicated 3-D workstation for the MRCP portion of the exam. COMPARISON: No prior study is available for comparison. FINDINGS: MRI: The visible lung bases are clear. There is mild diffuse hepatic steatosis. No arterially-enhancing liver lesions suspicious for hepatocellular carcinoma are identified. The hepatic arterial anatomy is conventional. The portal vein and its major branches are patent. The hepatic veins are patent. A subcentimeter cyst is identified in the right kidney. The left kidney appears normal. The spleen and adrenal glands are normal. No free intraperitoneal fluid is identified. MRCP: The gallbladder is normal without evidence of wall thickening, pericholecystic fluid, or gallstones. A 3 mm filling defect near the gallbladder neck (series 7, image 6) may represent the patient's reported gallbladder polyp. The intrahepatic and extrahepatic bile ducts are not dilated. Otherwise, no filling defect is seen within the biliary system. The pancreas has normal signal intensity. There is no peripancreatic fluid collection. A few subcentimeter pancreatic cysts are identified within the pancreatic body and tail measuring up to 5 mm (series 4, image 17, 21, and 22). The pancreatic duct is not dilated. Procedure Note Thaddeus Mcmahon MD - 06/16/2018 EXAMINATION: 1. Magnetic resonance imaging (MRI) of the abdomen without and with contrast 2. Magnetic resonance cholangiopancreatography (MRCP) with 3-D reconstruction and analysis HISTORY: 62-year-old male with hepatic steatosis and elevated liver enzymes (GGT), reported history of gallbladder polyp TECHNIQUE: MRI of the abdomen was performed prior to and following the uneventful administration of 17 mL of Multihance intravenous gadolinium contrast according to standard protocol, including dynamic imaging for MRCP. Image data was analyzed on a dedicated 3-D workstation for theMP portion of the exam. COMPARISON: No prior study is available for comparison. FINDINGS: MRI: The visible lung bases are clear. There is mild diffuse hepatic steatosis. No arterially-enhancing liver lesions suspicious for hepatocellular carcinoma are identified. The hepatic arterial anatomy is conventional. The portal vein and its major branches are patent. The hepatic veins are patent. A subcentimeter cyst is identified in the right kidney. The left kidney appears normal. The spleen and adrenal glands are normal. No free intraperitoneal fluid is identified. MRCP: The gallbladder is normal without evidence of wall thickening, pericholecystic fluid, or gallstones. A 3 mm filling defect near the gallbladder neck (series 7, image 6) may represent the patient'sreported gallbladder polyp. The intrahepatic and extrahepatic bile ducts are not dilated. Otherwise, no filling defect is seen within the biliary system. The pancreas has normal signal intensity. There is no peripancreaticfluid collection. A few subcentimeter pancreatic cysts are identified withinthe pancreatic body and tail measuring up to 5 mm (series 4, image 17, 21,and 22). The pancreatic duct is not dilated. IMPRESSION: 1. Mild diffuse hepatic steatosis. Dictated by Davy Gardner MD (resident program specialist). I, Dr. THADDEUS MCMAHON M.D. have personally reviewed and interpreted this examination/study. This report was electronically signed by THDADEUS MCMAHON M.D. on06/16/2018 1:56 PM . Morgan Baxter MD MR ORDERABLES * CREATININE BLOOD - POCT (IP) [facility] (06/16/2018 7:10 AM CDT) Creatinine POCT 1.23 0.3 - 1.3 mg/dL [facility] Comment:60 eGFR POCT 60 60 ml/min [facility] Blood BLOOD SPECIMEN / Unknown 06/16/2018 7:10 AM CDT Morgan Baxter MD LAB - POINT OF CARE ORDERABLES [facility] [address] [phone] * PT-INR [facility] (04/06/2018 3:03 PM CDT) Pathologist [facility] PT 13.9 12.1 - 14.8 Seconds 04/06/2018 3:58 PM CDT [facility] HOSPITAL INR 1.1 See Comment 04/06/2018 3:58 PM CDT [facility] Comment: Suggested therapeutic range for low-intensity coumadin therapy for venous thromboembolism prophylaxis is an INR of 2.0-3.0. For high risk patients (Mitral Valve Prosthesis, Atrial Fibrillation, history of TIA/stroke), suggested prophylactic therapeutic range is an INR of 2.5-3.5. Blood BLOOD SPECIMEN / Unknown Lab Venipuncture / Unknown 04/06/2018 3:03 PM CDT 04/06/2018 3:43 PM CDT Morgan Baxter MD LAB - COAGULATION OR DERABLES [address] [phone] * MITOCHONDRIAL ANTIBODY SCREEN (04/06/2018 3:03 PM CDT) [facility] Mitochondrial M2 Antibody 3.1 0.0 - 20.0 Units 04/08/2018 11:31 AM CDT [facility] Comment: Mitochondrial M2 Antibody Numeric Result Interpretation: <20.1 Units: Negative 20.1 - 24.9 Units: Equivocal >24.9 Units: Positive Blood BLOOD SPECIMEN / Unknown Lab Venipuncture / Unknown 04/06/2018 3:03 PM CDT 04/06/2018 3:43 PM CDT Morgan Baxter MD LAB - CHEMISTRY ORDE RABLES [address] [phone] * KPDUG-[id number] BLOOD PHENOTYPING PANEL (04/06/2018 3:03 PM CDT) [facility] Yyoea-5-Cixgjuxhll n 126 90 - 200 mg/dL 04/10/2018 3:18 PM CDT [facility] ([facility]) Phenotype (PI) MM 04/10/2018 3:18 PM CDT [facility] Comment: Phenotype Population A-1-AT Concentration Incidence % Reference Interval MM 86.5% 96 - 189 MS 8.0% 83 - 161 MZ 3.9% 60 - 111 FM 0.4% 93 - 191 SZ 0.3% 42 - 75 SS 0.1% 62 - 119 ZZ 0.05% 16 - 38 FS 0.05% 70 - 128 FZ Unknown 44 - 88 FF Unknown Unknown Blood BLOOD SPECIMEN / Unknown Lab Venipuncture / Unknown 04/06/2018 3:03 PM CDT 04/06/2018 3:44 PM CDT Narrative [facility] ([facility]) - 04/10/2018 3:18 PM CDT Performed at: [address] [place] [id number] [employer] Supervisor: Hunter Saucedo PhD, Phone: [phone] Performed at: [address] [place] [address] [id number] [employer] Supervisor: Charlie Jones MD, Phone: [phone] Morgan Baxter MD LAB - CHEMISTRY [place] [facility]) [address] [place] [address] * EDITH BLOOD SCREEN W/REFLEX TITER (04/06/2018 3:03 PM CDT) EDITH Negative 04/07/2018 5:13 PM CDT [facility] ([facility]) Comment: Negative <1:80 Borderline 1:80 Positive >1:80 Blood BLOOD SPECIMEN / Unknown Lab Venipuncture / Unknown 04/06/2018 3:03 PM CDT 04/06/2018 3:43 PM CDT Narrative [facility] ([facility]) - 04/07/2018 5:13 PM CDT Performed at: [address] [place] [address] [id number] [employer] Supervisor: Hunter Saucedo PhD, Phone: [phone] Morgan Baxter MD LAB - CHEMISTRY ORDE RABLES Performing Organization Address City/[facility]/ZIP Co de Phone Number [facility]) [address] [place] [address] * MICROSOMAL ANTIBODY LIVER/KIDNEY (04/06/2018 3:03 PM CDT) Pathologist [facility] Liver-Kidney Microsomal Antibody <1.0 0.0 - 20.0 Units 04/07/2018 3:19 PM CDT [facility] ([facility]) Comment: Negative 0.0 - 20.0 Equivocal 20.1 - 24.9 Positive >24.9 LKM type 1 antibodies are detected in patients with autoimmune hepatitis type 2 and in up to 8% of patients with chronic HCV infection. Blood BLOOD SPECIMEN / Unknown Lab Venipuncture / Unknown 04/06/2018 3:03 PM CDT 04/06/2018 3:44 PM CDT Narrative [facility] ([facility]) - 04/07/2018 3:19 PM CDT Performed at: [facility] [address] [place], [place] [id number] [employer] Supervisor: Hunter Saucedo PhD, Phone: [phone] Morgan Baxter MD LAB - CHEMISTRY [place] Performing Organization Address [facility] Co de Phone Number [facility]) [address] [place] [address] * (ABNORMAL) NUCLEOTIDASE 5- (04/06/2018 3:03 PM CDT) Pathologist [facility] 5'-Nucleotidase 14(H) 0 - 10 IU/L 04/08/2018 12:17 PM CDT [facility] ([facility]) Blood BLOOD SPECIMEN / Unknown Lab Venipuncture / Unknown 04/06/2018 3:03 PM CDT 04/06/2018 3:43 PM CDT Narrative [facility] ([facility]) - 04/08/2018 12:17 PM CDT Performed at: - [address] [id number] [employer] Supervisor: Charlie Jones MD, Phone: [phone] Morgan Baxter MD LAB - CHEMISTRY [place] [facility] ([facility]) [address] [place] [address] * SMOOTH MUSCLE ANTIBODY (04/06/2018 3:03 PM CDT) F-Actin Antibody IgG 5.6 0.0 - 19.9 Units 04/08/2018 11:31 AM CDT [facility] Comment: F-Actin Antibody Numeric Result Interpretation: <20.0 Units: Negative 20.0 - 30.0 Units: Weak Positive >30.0 Units: Moderate to Strong Positive Blood BLOOD SPECIMEN / Unknown Lab Venipuncture / Unknown 04/06/2018 3:03 PM CDT 04/06/2018 3:43 PM CDT Morgan Baxter MD LAB - SEROLOGY ORDER YONNY Performing Organization Address [facility]/ZIP Co de Phone Number [address] [phone] * HEPATITIS B CORE ANTIBODY (04/06/2018 3:03 PM CDT) HBc Antibody Total Non-reacti ve Non-reacti ve 04/06/2018 4:30 PM CDT [facility] Blood BLOOD SPECIMEN / Unknown Lab Venipuncture / Unknown 04/06/2018 3:03 PM CDT 04/06/2018 3:44 PM CDT Morgan Baxter MD LAB - CHEMISTRY [place] Performing Organization Address City/[facility]/ZIP Co de Phone Number [address] [phone] * HEPATITIS B SURFACE ANTIGEN W RFLX CONFIRMATION (04/06/2018 3:03 PM CDT) Hepatitis B Virus Surface Antigen Non-reacti ve Non-reacti ve 04/06/2018 4:28 PM CDT [facility] Blood BLOOD SPECIMEN / Unknown Lab Venipuncture / Unknown 04/06/2018 3:03 PM CDT 04/06/2018 3:43 PM CDT Morgan Baxter MD LAB - CHEMISTRY [place] [address] [phone] * HEPATITIS C ANTIBODY (04/06/2018 3:03 PM CDT) [facility] Hepatitis C Antibody Non-react forrest Non-reac tive 04/06/2018 4:58 PM CDT [facility] Comment: Hepatitis C Antibody screen indicates no serologic evidence of past or current infection with Hepatitis C Virus. Patients with unexplained liver disease who are immunocompromised or suspected of having acute Hepatitis C infection may benefit from Nucleic Acid Test (JIMENEZ) for Hepatitis C Viral RNA to confirm Hepatitis C status. Blood BLOOD SPECIMEN / Unknown Lab Venipuncture / Unknown 04/06/2018 3:03 PM CDT 04/06/2018 3:43 PM CDT Morgan Baxter MD LAB - CHEMISTRY [place] Performing Organization Address [facility]/ZIP Co de Phone Number [address] [phone] * HEPATITIS A ANTIBODY (04/06/2018 3:03 PM CDT) [facility] Hepatitis A Virus Antibody Total Negative Negative 04/07/2018 9:21 AM CDT [facility] ([facility]) Blood BLOOD SPECIMEN / Unknown Lab Venipuncture / Unknown 04/06/2018 3:03 PM CDT 04/06/2018 3:44 PM CDT Narrative [facility] ([facility]) - 04/07/2018 9:21 AM CDT Performed at: [facility] [address] [place], [place] [id number] [employer] Supervisor: Hunter Saucedo PhD, Phone: [phone] Morgan Baxter MD LAB - CHEMISTRY [place] [facility] ([facility]) [address] [place] [address] Care Teams Quality Assurance Supervisor Relationship Specialty Start Date End Date Jaye Denny MD [address] [place] [address] PCP - General 06/16/18
--- OUTSIDE RECORDS SUMMARY | 2025-01-03 07:53 | XMS_ITS | Continuity of Care Document ---
Author Organization [facility] Address [address] [place] [address] Phone Care Team Providers Care Retirement Sales Consultant Name Role Phone Juancho Kam MD Unavailable Unavailable Allergies, Adverse Reactions, Alerts Substance Reaction Status Criticality No Known Drug Allergies Other Active No I nformation Medications Medication Instructions Dosage Effective Dates (start - stop) Status Comments Lipitor 10 mg tablet take 1 tablet by oral route every day 10 MG - Active Depo-Testosterone 200 mg/mL intramuscular oil inject 0.5 milliliter (100MG) by intramuscular route every week 100 MG - Active Faxed to [facility] [phone] SYR BD 3ML 21G 1IN USE 1 SYRINGE TO INJECT WEEKLY TESTOSTERONE - Active MULTIVITAMIN TABS 1 QD-daily 100 MG - Active ADULT LOW STRENGTH 81MG TABS 1 QD 100 MG - Active Advance Directives Directive Yes / No Effective Date File Name No Information Encounters Encounter Description Practice Location Reason(s) For Visit Diagnoses Date Provider Providers Copied on Encounter [facility], [address], [place], [place], [address] , [place] tel: [phone] [place] No Information 6 Eddy Dawkins. [address] [place], [place], [address], [place]. [phone] [facility], [address], [place], [place], [address] , [place] tel: [phone] [facility] Abscess of right leg 6 Eddy Dawkins. [address] [place], [place], [address], [place]. tel:[phone] Referring Provider: Juancho Son, [address] [place], [address] . tel:[phone] [facility], [address], [place], [place], [address] , tel:[phone] [facility] No Information 6 Eddy Dawkins. [address] [place], [place], [address], [place]. [phone] [facility], [address], [place], [place], [address] , [place] tel: [phone] [facility] No Information 6 Luissushma Juancho. [address] [place], [address], [place]. tel:[phone] [facility], [address], [place], [place], [address] , [place] tel: [phone] [facility] Obstructive sleep apnea (adult) (pediatric)Pure hypercholesterolemi aEpicondylitis, lateral, rightEncounter for general adult medical examination without abnormal findingsSpecial screening for malignant neoplasms, colonEncounter for immunization 5 Eddy Dawkins. [address] [place], [place], [address], [place]. tel:[phone] Referring Provider: Juancho Son, [address] [place], [address] . tel:[phone] [facility], [address], [place], [place], [address] , [place] tel: [phone] [facility] Pure hypercholesterolemi aEncounter for long-term (current) use of other medicationsSpecial screening for malignant neoplasm of prostate 5 Eddy Dawkins. [address] [place], [place], [address], [place]. tel:[phone] Referring Provider: Juancho Son, [address] [place], [address] . tel:[phone] [facility], [address], [place], [place], [address] , [place] tel: [phone] [facility] No Information 5 Eddy Juancho. [address] [place], [place], [address], [place]. [phone] [facility], [address], [place], [place], [address] , tel: [phone] [facility] Sleep Apnea 4 Eddy Juancho. [address] [place], [place], [address], [place]. tel:[phone] [facility], [address], [place], [place], [address] , tel: [phone] [facility] Other testicular hypofunctionPure hypercholesterolemi aUnspecified sleep apneaRoutine general medical examination at a health care facility 4 Eddy Dawkins. [address] [place], [place], [address], [place]. tel:[phone] Referring Provider: Juancho Son, [address] [place], [address] . tel:[phone] [facility], [address], [place], [place], [address] , [place] tel: [phone] [facility] Encounter for screening for malignant neoplasm of prostateEncounter for long-term (current) use of other medicationsOther and unspecified hyperlipidemiaType II diabetes mellitus 4 Eddy Dawkins. [address] [place], [place], [address], [place]. tel:[phone] Referring Provider: Juancho Son, [address] [place], [address] . tel:[phone] [facility], [address], [place], [place], [address] , [place] tel: [phone] [facility] Diabetes mellitus without mention of complication, type II or unspecified type, not stated as uncontrolledHYPERLI PIDEMIA NEC/NOSObstructive sleep apnea (adult)(pediatric) 4 Eddy Dawkins. [address] [place], [place], [address], [place]. tel:[phone] Referring Provider: Juancho Son, [address] [place], [address] . tel:[phone] [facility], [address], [place], [place], [address] , [place] tel: [phone] [facility] HYPERLIPIDEMIA NEC/NOSTESTICULAR HYPOFUNC NECRoutine general medical examination [facility] ([facility])(pediatric)R outine general medical examination at a [facility] facility 3 Eddy Dawkins. [address] [place], [place], [address], [place]. tel:[phone] Referring Provider: Juancho Son, [address] [place], [address] . tel:[phone] [facility], [address], [place], [place], [address] , [place] tel: [phone] [facility] Diabetes mellitus without mention of complication, type II or unspecified type, not stated as uncontrolledOther testicular hypofunctionOther and unspecified hyperlipidemiaLong- term (current) use of other medicationsScreenin g for malignant neoplasms of the prostate 3 Eddy Dawkins. [address] [place], [place], [address], [place]. tel:[phone] Referring Provider: Juancho Son, [address] [place], [address] . tel:[phone] [facility] [address], [place], [place], [address] , [place] tel: [phone] [facility] Pure hypercholesterolemi aTESTICULAR HYPOFUNC NECChondromalaciaAn nual physical examRoutine general medical examination at a health care facility 2 Eddy Dawkins. [address] [place], [address], [place]. tel:[phone] Referring Provider: Juancho Son, [address] [place], [address] . tel:[phone] [facility], [address], [place], [place], [address] , [place] tel: [phone] [facility] Other and unspecified hyperlipidemiaOther testicular hypofunctionLong-te rm (current) use of other medicationsDiabetes mellitus without mention of complication, type II or unspecified type, not stated as uncontrolledScreeni ng for malignant neoplasms of the prostate Aug- 2 Eddy Dawkins. [address] [place], [place], [address], [place]. tel:[phone] Referring Provider: Juancho Son, [address] [place], [address] . tel:[phone] [facility], [address], [place], [place], [address] , tel: [phone] [facility] Other chronic nonalcoholic liver diseaseNonspecific elevation of levels of transaminase or lactic acid dehydrogenase (ldh)Obstructive sleep apnea (adult)(pediatric)O ther testicular hypofunctionDiabete s mellitus without mention of complication, type II or unspecified type, not stated as uncontrolled Jul- 1 Eddy Dawkins. [address] [place], [address], [place]. tel:[phone] Referring Provider: Juancho Son, [address] [place], [address] . tel:[phone] [facility], [address], [place], [place], [address] , tel: [phone] [facility] Long-term (current) use of other medicationsScreenin g for malignant neoplasms of the prostateRoutine general medical examination at a health care facility Jul- 1 Eddy Dawkins. [address] [place], [address], [place]. tel:[phone] Referring Provider: Juancho Son, [address] [place], [address] . tel:[phone] [facility], [address], [place], [place], [address] , tel: [phone] [facility] No Information Sep-0 6201 1 Eddy JuanchoSarah Quesada [place], [address], [place]. tel:[phone] [facility], [address], [place], [place], [address] , [place] tel: [phone] [facility] CHRONIC LIVER DIS NECROUTINE MEDICAL EXAMSCREEN MAL NEOP-RECTUMPURE HYPERCHOLESTEROLEM Sep-0 8201 0 Eddy Quesada [place], [address], [place]. tel: [phone] [facility], [address], [place], [place], [address] , [place] tel: [phone] [facility] LONG-TERM USE MEDS NECSCRN MALIG NEOP-PROSTATE Jun-3 1-201 0 Eddy JuanchoSarah Quesada [place], [address], [place]. tel: [phone] [facility], [address], [place], [place], [address] , [place] tel: [phone] [facility] HYPERLIPIDEMIA NEC/NOSMALAISE AND FATIGUE NECPURE HYPERGLYCERIDEMIA Oct-2 7200 9 Eddy Quesada [place], [address], [place]. tel: [phone] [facility], [address], [place], [place], [address] , [place] tel: [phone] [facility] TESTICULAR HYPOFUNC NEC Aug-2 7200 9 [facility] [address] [place] [address], [place], [address], [place]. [facility], [address], [place], [place], [address] , [place] tel: [phone] [facility] ABN SERUM ENZY LEVEL NECFAM HX-KIDNEY DIS NECOBSTRUCTIVE SLEEP APNEA Apr-2 2-200 9 Eddy Quesada [place], [address], [place]. tel:[phone] [facility], [address], [place], [place], [address] , [place] tel: [phone] [facility] POST-PROC STATES NECCHEST PAIN NEC Mar-0 9-200 7 Eddy Quesada [place], [address], [place]. tel:[phone] [facility], [address], [place], [place], [address] , tel: [phone] [facility] PREOP EXAM UNSPCFROTATOR CUFF DIS NEC 6-200 7 Deirdazonia Quesada [place], [address], [place]. tel:[phone] [facility], [address], [place], [place], [address] , tel: [phone] [facility] No Information Jan-0 1-200 6 Eddy Dawkins. [place], [address], . tel:[phone] [facility], [address], [place], [place], [address] , tel: [phone] [facility] SLEEP APNEA NOS José Luis-3 0-200 3 Deidrazonia Quesada [place], [address], [place]. tel:[phone] [facility], [address], [place], [place], [address] , tel: [phone] [facility] ABDMNAL PAIN RT UPR QUAD Jun-0 7-200 1 [facility] [address] [facility], [place], [address], [place]. [facility], [address], [place], [place], [address] , tel: [phone] [facility] ELEV TRANSAMINASE/LDH Dec-0 8-200 1 Eddy Quesada [place], [address], . tel:[phone] Family History Family Member Type Diagnosis Age At Onset Sister Problem (finding) MS Sister Problem (finding) MS Mother Problem (finding) POLYCYSTIC KIDNEY 67 Mother Problem (finding) Cancer - Stomach Cancer Mother Problem (finding) diabetes melli tus in first degree relative Paternal grandfather Problem (finding) cancer of colon Immunizations Vaccine Date Status Comments Tdap administered Source: New Imm unization Record influenza, injectable, quadrivalent, (3 years or older) administered Source: Other Regist ry influenza, injectable, quadrivalent, (3 years or older) administered Source: Other Provid er Payers Payer name Insurance type Covered green party ID Authorenioa marisabel(s) [employer] [id number] 1 Social History Type Description Quantity Date Captured Comments Alcohol Use Details Unknown Caffeine Use Details Unknown Tobacco Use Status No Information Smoking Status No Information Sex Male Chief Complaint And Reason For Visit No Information Reason For Referral Reason For Referral No Information History Of Present Illness Encounter Date Complaint History Of Prese nt Illness No Information Functional Status Date Functional Assessmen t No Information Medications Administered Medication Instructions Dosage Effective Dates (start - stop) Status Comments No Drug Therapy Prescribed Instructions Date Instruction Additional Infor mation No Information Assessments Type Assessment Date No Information Patient Care Teams Name Effective Dates (start - stop) Status Members No Information
--- OUTSIDE RECORDS SUMMARY | 2025-01-03 07:53 | XMS_ITS | Referral Summary ---
Author Organization [facility] at the Medical Office Building Address [address] [place] [phone] Care Team Providers Care Contracting Specialist Name Role Phone Toya Epps MD Primary Care Provider Encounters Date Type Department Care Team Description 10/25/2024 8:00 AM SOFTWARE DEPLOYMENT ENGINEER Office Visit [facility] Primary Care [address] [place] [address] [place] [phone] Rachael Pang NP Encounter for general adult medical examination with abnormal findings (Primary Dx); Screening for prostate cancer; Mixed hyperlipidemia; Controlled type 2 diabetes mellitus with stage 3 chronic kidney disease, without long-term current use of insulin (HCC); Benign hypertension with CKD (chronic kidney disease) stage III (HCC); KASPER (nonalcoholic steatohepatitis); STEPHEN (obstructive sleep apnea); Prostate cancer (HCC); Overweight (BMI 25.0-29.9) from Last 3 Months Allergies No known active allergies Medications rosuvastatin (CRESTOR) 5 mg tablet TAKE 1 TABLET (5 MG TOTAL) BY MOUTH DAILY. 90 tablet 1 07/30/2024 Active valsartan-hydroC HLOROthiazide (DIOVAN-HCT) 80-12.5 mg per tablet TAKE 1 TABLET BY MOUTH DAILY 100 tablet 10/21/2024 Active Active Problems Problem Noted Date Diagnosed Date Colon cancer screening 06/22/2024 Prostate cancer 05/26/2024 Primary insomnia 09/30/2022 Assessment & Plan (09/30/2022 11:59 AM SOFTWARE DEPLOYMENT ENGINEER): The patient has insomnia. We did discuss sleep restriction therapy as well as cognitive behavioral therapy for insomnia. I did give him copies of the 2 brochures that are published by the [place] [employer] entitled - How to sleep better and Understanding insomnia. STEPHEN (obstructive sleep apnea) 09/30/2022 Assessment & Plan (03/01/2024 9:07 AM CDT): The patient continue to wear his CPAP at 10 cm water pressure while sleeping. His DME is [employer]. Assessment & Plan (02/27/2023 11:34 AM CDT): The patient continue to wear his CPAP at 10 cm water pressure while sleeping. His DME is [employer]. Assessment & Plan (09/30/2022 11:58 AM SOFTWARE DEPLOYMENT ENGINEER): The patient continues to benefit from CPAP at 10 cm water pressure. He is new to Medicare. I did tell him that he may require a new nocturnal polysomnogram in order to receive a new CPAP unit. I will order the new unit through [employer]. He will follow-up with me in 3 months. Controlled type 2 diabetes m ellitus without complication, without long-term current use of insulin ([facility]) 08/20/2022 Type 2 diabetes mellitus with chronic kidney dis ease 08/20/2022 Benign hypertension with CKD (chronic kidney disease) stage III 08/09/2021 Stage 3a chronic kidney disease 08/09/2021 Hyperlipidemia 08/09/2021 KASPER (nonalcoholic steatohepatitis) 08/09/2021 S/P arthroscopy of left shoulder 05/02/2020 Elevated liver enzymes 04/06/2018 Immunizations Name Administration Dates Next Due Influenza, Quadrivalent, Hig h Dose, Preservative Free, Intrr 09/15/2023 Influenza, Quadrivalent, Spl it, Intramuscular 10/07/2017 Influenza, Quadrivalent, Spl it, Preservative Free, Intramuscular 08/20/2022,08/26/2021,09/04/2020,09/14 Influenza, Trivalent, High D ose, Split, Preservative Free, Intramuscular 09/13/2024 Quvium SARS-CoV-2 Monovalent Vaccination (12+ Yrs) PURPLE 09/17/2021 Pneumococcal Conjugate PCV 13 12/27/2019 Pneumococcal Conjugate Pcv20 02/26/2023 RSV Vaccine, Pref, Recombina nt, Subunit, Adjuvanted, PF, IM (Arexvy) 08/31/2023 Tdap 09/20/2015 ZOSTER Recombinant 02/21/2022,08/09/2021 Social History Tobacco Use Types Packs/Day Years Used Date Smoking Tobacco: Never Smokeless Tobacco: Never Tobacco Cessation:Counseling Given: Not Answered AUDIT-C Answer Date Recorded Q1: How often do you have a drink containing alc ohol? Monthly or less 07/19/2024 Q2: How many drinks containi ng alcohol do you have on a typical day when you are drinking? 1 or 2 07/19/2024 Q3: How often do you have si x or more drinks on one occasion? Never 07/19/2024 PHQ-2 Answer Date Recorded PHQ-2 Total Score (If total score is 3 or more points, staff should administer the PHQ-9) 0 10/25/2024 Personal Safety Answer Date Recorded Have you ever been in or are you currently in a harmful physical or emotional relationship or is someone making you feel afraid or unsafe? Denies 07/21/2024 Sex and Gender Information Value Date Recorded Sex Assigned at Not on file Legal Sex Male 8:24 PM SOFTWARE DEPLOYMENT ENGINEER Gender Identity Male 09/12/2021 8:13 PM CDT Sexual Orientation Not on file Last Filed Vital Signs Vital Sign Reading Time Taken Comments Blood Pressure 122/68 10/25/2024 7:49 AM SOFTWARE DEPLOYMENT ENGINEER Pulse 57 10/25/2024 7:49 AM SOFTWARE DEPLOYMENT ENGINEER Temperature 35.8 C (96.5 F) 10/25/2024 7:49 AM SOFTWARE DEPLOYMENT ENGINEER Respiratory Rate 16 07/21/2024 12:40 PM CDT Oxygen Saturation 98% 10/25/2024 7:49 AM SOFTWARE DEPLOYMENT ENGINEER Inhaled Oxygen Concentration - - Weight 83 kg (183 lb) 10/25/2024 7:49 AM SOFTWARE DEPLOYMENT ENGINEER Height 172.7 cm (5' 8 ) 10/25/2024 7:49 AM SOFTWARE DEPLOYMENT ENGINEER Body Mass Index 27.83 10/25/2024 7:49 AM SOFTWARE DEPLOYMENT ENGINEER Plan of Treatment Not on file Procedures Procedure Name Priority Date/Time Associated Diagnosis Comments BASIC METABOLIC PANEL Routine 08/26/2024 7:10 AM CDT HEMOGLOBIN A1C Routine 08/26/2024 7:10 AM CDT Controlled type 2 diabetes mellitus without complication, without long-term current use of insulin ([facility]) (HCC) ALBUMIN CREATININE RATIO, URINE Routine 08/26/2024 7:10 AM CDT COLONOSCOPY 07/21/2024 11:54 AM CDT PSA SCREEN Routine 09/16/2023 9:36 AM CDT High prostate specific antigen (PSA) LIPID PANEL Routine 08/14/2023 7:25 AM CDT Routine general medical examination at a [facility] facility DIABETES EYE EXAM Routine 10/11/2022 from Last 3 Months or Most Recently Relevant to Health Maintenance Results * Albumin Creatinine Ratio, Urine (08/26/2024 7:10 AM CDT) Creatinine, ur 163 20 - 320 mg/dL [facility] Microalbumin, ur 1.4 See Note: mg/dL [facility] Comment: Reference Range: Reference Range Not established Microalbumin/creat ratio 9 <30 mg/g creat [facility] Comment: The ADA defines abnormalities in albumin excretion as follows: Albuminuria Category Result (mg/g creatinine) Normal to Mildly increased <30 Moderately increased 30-299 Severely increased > OR = 300 The ADA recommends that at least two of three specimens collected within a 3-6 month period be abnormal before considering a patient to be within a diagnostic category. 08/26/2024 7:10 AM CDT 08/26/2024 7:12 AM CDT us Toya Epps MD LAB URINE ORD ERABLES Final Result [facility] [address] [id number] * (ABNORMAL) Hemoglobin A1c (08/26/2024 7:10 AM CDT) Hgb A1C 6.4(H) <5.7 % of total Hgb [facility] Comment: For someone without known diabetes, a hemoglobin A1c value between 5.7% and 6.4% is consistent with prediabetes and should be confirmed with a follow-up test. For someone with known diabetes, a value <7% indicates that their diabetes is well controlled. A1c targets should be individualized based on duration of diabetes, age, comorbid conditions, and other considerations. This assay result is consistent with an increased risk of diabetes. Currently, no consensus exists regarding use of hemoglobin A1c for diagnosis of diabetes for children. Blood 08/26/2024 7:10 AM CDT 08/26/2024 7:12 AM CDT Toya Epps MD LAB BLOOD ORD ERABLES Final Result [facility] [address] [place] [address] * (ABNORMAL) Basic metabolic panel (08/26/2024 7:10 AM CDT) Glucose 117(H) 65 - 99 mg/dL [facility] Comment: Fasting reference interval For someone without known diabetes, a glucose value between 100 and 125 mg/dL is consistent with prediabetes and should be confirmed with a follow-up test. BUN 20 7 - 25 mg/dL [facility] Creatinine 1.42(H) 0.70 - 1.35 mg/dL [facility] eGFR 54(L) > OR = 60 mL/min/1.7 3m2 [facility] BUN/creat ratio 14 6 - 22 (calc) [facility] Sodium 137 135 - 146 mmol/L [facility] Potassium, pl 4.6 3.5 - 5.3 mmol/L [facility] Chloride 100 98 - 110 mmol/L [facility] CO2 29 20 - 32 mmol/L [facility] Calcium 9.7 8.6 - 10.3 mg/dL [facility] 08/26/2024 7:10 AM CDT 08/26/2024 7:12 AM CDT Toya Epps MD LAB BLOOD ORD ERABLES Final Result [facility] [address] [place] [address] * Colonoscopy (07/21/2024 11:54 AM CDT) Anatomical Region Laterality Modality Other Narrative Procedure Note Sammy Desir MD - 07/21/2024 11:54 AM CDT [facility] GI ENDOSCOPY Patient Name: Nhan Bundy Procedure Date: 07/21/2024 11:54 AM Date of : 1955 Admit Type: Outpatient Age: 68 Gender: Male Attending MD: Sammy Desir M.D. Room: [facility] ENDOSCOPY ROOM 06 Note Status: Finalized Procedure: Colonoscopy Indications: High risk colon cancer surveillance: Personalhistory of colonic polyps, Family history of colon cancer Referring MD: Providers: Sammy Desir M.D. Medicines: Monitored Anesthesia Care Complications: No immediate complications. Estimated Blood Loss: Estimated blood loss: none. Procedure: Pre-Anesthesia Assessment: - Prior to the procedure, a History and Physicalwas performed, and patient medications and allergieswere reviewed. The risks and benefits of the procedureand the sedation options and risks were discussed withthe patient. All questions were answered and informed consent was obtained. Patient identification and proposed procedure were verified. After reviewingthe risks and benefits, the patient was deemed in satisfactory condition to undergo the procedure.The anesthesia plan was to use monitored anesthesiacare (MAC). Immediately prior to administration of medications, the patient was re-assessed foradequacy to receive sedatives. The heart rate, respiratory rate, oxygen saturations, blood pressure, adequacyof pulmonary ventilation, and response to care were monitored throughout the procedure. The physical status of the patient was re-assessed after the procedure. The benefits, risks and alternatives of theprocedure and sedation were discussed and informed consentwas obtained. All questions were answered. Please referto the signed informed consent document in the medical record. The scope was passed under direct vision.The [id number]-[id number] colonoscope was introduced through theanus and advanced to the cecum, identified byappendiceal orifice and ileocecal valve. The colonoscopy was performed without difficulty. The patient tolerated the procedure well. The quality of the bowel preparation was adequate. Scope withdrawal time was15 minutes. Prep was administered in a split dose. Findings: The perianal and digital rectal examinations were normal. A diminutive polyp was found in the recto-sigmoid colon. The polypwas removed with a cold biopsy forceps. Resection and retrieval were complete. A few small-mouthed diverticula were found in the sigmoid colon. Non-bleeding internal hemorrhoids were found during retroflexion. The hemorrhoids were small. The exam was otherwise without abnormality. Impression: - One diminutive polyp at the recto-sigmoid colon, removed with a cold biopsy forceps. Resected and retrieved. - Diverticulosis in the sigmoid colon. - Non-bleeding internal hemorrhoids. - The examination was otherwise normal. Recommendation: - Patient has a contact number available for emergencies. The signs and symptoms of potential delayed complications were discussed with thepatient. Return to normal activities tomorrow. Written discharge instructions were provided to thepatient. - High fiber diet. - Continue present medications. - Await pathology results. - Repeat colonoscopy in 5 years for surveillance. Sammy Desir M.D. Sammy Desir M.D. 07/21/2024 12:25:04 PM . Number of Addenda: 0 Note Initiated On: 07/21/2024 11:54 AM Recognized by the [place] [employer] for promoting quality in endoscopy Sammy Desir MD ENDOSCOPY PROCEDURES Final Resul t * (ABNORMAL) PSA screen (09/16/2023 9:36 AM CDT) PSA 5.41(H) < OR = 4.00 ng/mL [facility] Comment: The total PSA value from this assay system is standardized against the WHO standard. The test result will be approximately 20% lower when compared to the equimolar-standardized total PSA (Man [place]). Comparison of serial PSA results should be interpreted with this fact in mind. This test was performed using the Siemens chemiluminescent method. Values obtained from different assay methods cannot be used interchangeably. PSA levels, regardless of value, should not be interpreted as absolute evidence of the presence or absence of disease. Blood 09/16/2023 9:36 AM CDT 09/16/2023 9:36 AM CDT Narrative [facility] - 09/17/2023 4:58 AM CDT FASTING:NO FASTING: NO Toya Epps MD LAB BLOOD ORD ERABLES Final Result [facility] [address] [id number] * Lipid panel (08/14/2023 7:25 AM CDT) Cholesterol 129 <200 mg/dL [facility] HDL 52 > OR = 40 mg/dL [facility] Triglycerides 81 <150 mg/dL [facility] LDL 61 mg/dL (calc) [facility] Comment: Reference range: <100 Desirable range <100 mg/dL for primary prevention; <70 mg/dL for patients with CHD or diabetic patients with > or = 2 CHD risk factors. LDL-C is now calculated using the Will calculation, which is a validated novel method providing better accuracy than the Friedewald equation in the estimation of LDL-C. Tahir SS et al. NORMA. 2013;310(19): 7378-2534 (http://education.Terres et Terroirs/faq/MLU228) Chol/HDL ratio 2.5 <5.0 (calc) [facility] Non-HDL, (LDL+VLDL) 77 <130 mg/dL (calc) [facility] Comment: For patients with diabetes plus 1 major ASCVD risk factor, treating to a non-HDL-C goal of <100 mg/dL (LDL-C of <70 mg/dL) is considered a therapeutic option. Blood 08/14/2023 7:25 AM CDT 08/14/2023 7:27 AM CDT Toya Epps MD LAB BLOOD ORD ERABLES Final Result [facility] [address] [place] [address] * DIABETES EYE EXAM (10/11/2022) SCRIBED DIABETIC DILATED EYE EXAM Normal Historical Provider HEALTH MAINTENANCE Final Result from Last 3 Months or Most Recently Relevant to Health Maintenance Insurance [employer] MEDICARE GOLD AETNA MEDICARE GOLD Care Teams Contracting Specialist Relationship Specialty Start Date End Date Toya Epps MD [address] [place] [phone] PCP - General Internal Medicine 08/21/22
--- OUTSIDE RECORDS SUMMARY | 2025-01-03 07:53 | XMS_ITS | Clinical Summary ---
Author Organization [facility] Address [address] [place] [phone] Care Team Providers Care Bulk Tank Car Unloader Name Role Phone Toya Epps MD Primary Care Provider Allergies No known active allergies Medications rosuvastatin [...] 09/30/2022 Assessment & Plan (09/30/2022 11:59 AM REHEATER): The patient has insomnia. We did discuss sleep restriction therapy as well as cognitive behavioral therapy for insomnia. I did give him copies of the 2 brochures that are published by the [employer] entitled - How [...] [employer]. Assessment & Plan (09/30/2022 11:58 AM REHEATER): The patient continues to benefit from CPAP at 10 cm water pressure. He is new to Medicare. I did tell him that he may require a new nocturnal polysomnogram in order to receive a new CPAP unit. I will order the new unit through [employer]. He will follow-up with me in 3 months. Controlled type 2 diabetes m ellitus without complication, without long-term current use of insulin ([facility]/HCC) 08/20/2022 Type 2 diabetes mellitus with chronic kidney dis ease 08/20/2022 Benign hypertension with CKD (chronic kidney disease) stage III 08/09/2021 Stage 3a chronic kidney disease 08/09/2021 Hyperlipidemia 08/09/2021 KASPER (nonalcoholic steatohepatitis) 08/09/2021 S/P arthroscopy of left shoulder 05/02/2020 Elevated liver enzymes 04/06/2018 Encounters Date Type Department Care Team Description 10/25/2024 8:00 AM REHEATER Office Visit [facility] Primary Care [address] [place] [phone] Rachael Pang NP Encounter for general adult medical examination with abnormal findings (Primary Dx); Screening for prostate cancer; Mixed hyperlipidemia; Controlled type 2 diabetes mellitus with stage 3 chronic kidney disease, without long-term current use of insulin ([facility]); Benign hypertension with CKD (chronic kidney disease) stage III (HCC); KASPER (nonalcoholic steatohepatitis); STEPHEN (obstructive sleep apnea); Prostate cancer (HCC); Overweight (BMI 25.0-29.9) from Last 3 Months Immunizations Name Administration Dates Next Due Influenza, Quadrivalent, Hig h Dose, Preservative Free, Intrr 09/15/2023 Influenza, Quadrivalent, Spl it, Intramuscular 10/07/2017 Influenza, Quadrivalent, Spl it, Preservative Free, Intramuscular 08/20/2022,08/26/2021,09/04/2020,09/14 Influenza, Trivalent, High D ose, Split, Preservative Free, Intramuscular 09/13/2024 Pfizer SARS-CoV-2 Monovalent Vaccination (12+ Yrs) PURPLE 09/17/2021 Pneumococcal Conjugate PCV 13 12/27/2019 Pneumococcal Conjugate Pcv20 02/26/2023 RSV Vaccine, Pref, Recombina nt, Subunit, Adjuvanted, PF, IM (Arexvy) 08/31/2023 Tdap 09/20/2015 ZOSTER Recombinant 02/21/2022,08/09/2021 Surgical History Surgery Date Site/Laterality Comments APPENDECTOMY KNEE ARTHROSCOPY ROTATOR CUFF REPAIR bilateral PROSTATE BIOPSY PROSTATECTOMY 12/25/2023 - 01/22/2024 COLONOSCOPY 11/24/2018 - 11/23/2019 Medical History Medical History Date Comments Hyperlipidemia Hypertension Sleep difficulties Fatty liver Diabetes mellitus (HCC) Sleep apnea Colon polyp Bradycardia Prostate cancer (HCC) 12/2023 Family History Medical History Relation Name Comments Hearing loss Father Rylan mds Father Rylan Cancer Mother Cecile Depression Mother Cecile Diabetes Mother Cecile Hypertension Mother Cecile Kidney disease Mother Cecile Obesity Mother Cecile Colon cancer Paternal Grandfather Relation Name Status Comments Father Rylan Alive Mother Cecile Paternal Grandfather Sister 1 Alive Sister 2 Alive Social History Tobacco Use Types Packs/Day Years [...] on file Legal Sex Male 8:24 PM REHEATER Gender Identity Male 09/12/2021 8:13 PM CDT Sexual Orientation Not on file Obstetrics History Last Filed Vital Signs Vital Sign Reading Time Taken Comments Blood Pressure 122/68 10/25/2024 7:49 AM REHEATER Pulse 57 10/25/2024 7:49 AM REHEATER Temperature 35.8 C (96.5 F) 10/25/2024 7:49 AM REHEATER Respiratory Rate 16 07/21/2024 12:40 PM CDT Oxygen Saturation 98% 10/25/2024 7:49 AM REHEATER Inhaled Oxygen Concentration - - Weight 83 kg (183 lb) 10/25/2024 7:49 AM REHEATER Height 172.7 cm (5' 8 ) 10/25/2024 7:49 AM REHEATER Body Mass Index 27.83 10/25/2024 7:49 AM REHEATER Plan of Treatment Health Maintenance Due Date Last Done Comments Hepatitis C Screening 1955 Hepatitis B Screening 1975 Foot Exam 02/05/2023 02/05/2022 Dilated Eye Exam 10/11/2023 10/11/2022 Covid-19 Vaccine (2023-12 5 season) 2024 04/13/2022, 09/17/2021, 02/23/2021, Additional history exists Lipid Panel 08/14/2024 08/14/2023, 09/0 06/2022, 08/16/2021 Hemoglobin A1C 02/24/2025 08/26/2024, 07/0 07/2024, 08/14/2023, Additional history exists Albumin Creatinine Ratio, Urine 08/26/2025 08/26/2024, 06/01/2024, 08/14/2023, Additional history exists eGFR 08/26/2025 08/26/2024, 07/0 07/2024, 08/14/2023, Additional history exists Prostate Cancer Screening-PSA 09/16/2025, 08/14/2023, 08/01/2022, Additional history exists DTaP/Tdap/Td Vaccine (2 - Td or Tdap) 09/20/2025 09/20/2015 Depression Screening 10/25/2025 10/25/2024, 11/03/2023, 02/26/2023, Additional history exists Fall Risk Assessment 10/25/2025 10/25/2024, 11/03/2023, 08/20/2022 Well Visit 65+ 10/25/2025 10/25/2024, 10/24, 08/20/2022, Additional history exists Colon Cancer Screening-Colonoscopy 07/21/20292023, 05/24/2019 Zoster Vaccine Completed 02/21/2022, 08/09/2021 Pneumococcal vaccine 65+ Completed 02/26/2023, 01/2020 Influenza Vaccine Completed 09/13/2024, , 08/20/2022, Additional history exists Procedures Procedure Name Priority Date/Time Associated Diagnosis Comments BASIC METABOLIC PANEL Routine 08/26/2024 7:10 AM CDT HEMOGLOBIN A1C Routine 08/26/2024 7:10 AM CDT Controlled type 2 diabetes mellitus without complication, without long-term current use of insulin ([facility]) ([facility]) ALBUMIN CREATININE RATIO, URINE Routine 08/26/2024 7:10 AM CDT COLONOSCOPY 07/21/2024 11:54 AM CDT PSA SCREEN Routine 09/16/2023 9:36 AM CDT High prostate specific antigen (PSA) LIPID PANEL Routine 08/14/2023 7:25 AM CDT Routine general medical examination at a health care facility DIABETES EYE EXAM Routine 10/11/2022 from [...] 7:12 AM CDT Toya Epps MD LAB URINE ORD ERABLES Final Result Performing Organization Address City/[facility]/ZIP Co de Phone Number [facility] [address] [address] [phone] * (ABNORMAL) Hemoglobin A1c (08/26/2024 7:10 AM CDT) Hgb A1C 6.4(H) <5.7 % of total Hgb [facility] Comment: For someone without known diabetes, [...] AM CDT us Toya Epps MD LAB BLOOD ORD ERABLES Final Result Performing Organization Address [facility] Co de Phone Number [facility] [address] [place] [address] * (ABNORMAL) Basic metabolic panel (08/26/2024 7:10 AM CDT) Glucose 117(H) 65 - 99 mg/dL [facility] Comment: Fasting reference interval For someone without known diabetes, a glucose value between 100 and 125 mg/dL is consistent with prediabetes and should be confirmed with a follow-up test. BUN 20 7 - 25 mg/dL [facility] Creatinine 1.42(H) 0.70 - 1.35 mg/dL [facility] eGFR 54(L) > OR = 60 mL/min/1.7 3m2 [facility] BUN/creat ratio 14 6 - 22 (calc) [facility] Sodium 137 135 - 146 mmol/L [facility] Potassium, pl 4.6 3.5 - 5.3 mmol/L [facility] Chloride 100 98 - 110 mmol/L [facility] CO2 29 20 - 32 mmol/L [facility] Calcium 9.7 8.6 - 10.3 mg/dL [facility] 08/26/2024 7:10 AM CDT 08/26/2024 7:12 AM CDT us Toya Epps MD LAB BLOOD ORD ERABLES Final Result [facility] [address] [place] [address] * Colonoscopy (07/21/2024 11:54 AM CDT) Anatomical Region Laterality Modality Other Narrative Procedure Note Sammy Desir MD - 07/21/2024 11:54 AM CDT [facility] GI ENDOSCOPY Patient Name: Nhan Bundy Procedure Date: 07/21/2024 11:54 AM Date of : 1955 Admit Type: Outpatient Age: 68 Gender: Male Attending MD: Sammy Desir M.D. Room: [facility] ENDOSCOPY ROOM 06 Note Status: Finalized Procedure: [...] The scope was passed under direct vision.The [id number] colonoscope was introduced through theanus and advanced [...] On: 07/21/2024 11:54 AM Recognized by the [employer] for promoting quality in endoscopy Sammy Desir MD ENDOSCOPY PROCEDURES Final Resul t * (ABNORMAL) PSA screen (09/16/2023 9:36 AM CDT) PSA 5.41(H) < OR = 4.00 ng/mL [facility] Comment: The total PSA value from this assay system is standardized against the WHO standard. The test result will be approximately 20% lower when compared to the equimolar-standardized total PSA ([place]). Comparison of serial PSA results should be [...] MD LAB BLOOD ORD ERABLES Final Result [facility] [address] [address] [address] * Lipid panel (08/14/2023 7:25 AM CDT) Cholesterol 129 <200 mg/dL [facility] HDL 52 > OR = 40 mg/dL [facility] Triglycerides 81 <150 mg/dL [facility] LDL 61 mg/dL (calc) [facility] Comment: Reference range: <100 Desirable range <100 mg/dL for primary prevention; <70 mg/dL for patients with CHD or diabetic patients with > or = 2 CHD risk factors. LDL-C is now calculated using the Will calculation, which is a validated novel method providing better accuracy than the Friedewald equation in the estimation of LDL-C. Tahir SS et al. NORMA. 2013;310(19): 1092-2920 (http://education.MeMed/faq/DNC086) Chol/HDL ratio 2.5 <5.0 (calc) [facility] Non-HDL, (LDL+VLDL) 77 <130 mg/dL (calc) [facility] Comment: For patients with diabetes plus 1 major ASCVD risk factor, treating to a non-HDL-C goal of <100 mg/dL (LDL-C of <70 mg/dL) is considered a therapeutic option. Blood 08/14/2023 7:25 AM CDT 08/14/2023 7:27 AM CDT Toya Epps MD LAB BLOOD ORD ERABLES Final Result [facility] [address] [place] [address] * DIABETES EYE EXAM (10/11/2022) SCRIBED DIABETIC DILATED EYE EXAM Normal Historical Provider HEALTH MAINTENANCE Final Result from Last 3 Months or Most Recently Relevant to Health Maintenance Insurance AETNA MEDICARE GOLD AETNA MEDICARE GOLD Care Teams Bulk Tank Car Unloader Relationship Specialty Start Date End Date Toya Epps MD [address] [place] [id number] PCP - General Internal Medicine 08/21/22
--- OUTSIDE RECORDS SUMMARY | 2025-01-03 07:53 | XMS_ITS | Encounter Summary ---
Author Organization [facility] Healthcare Address [address] [place] [address] Care Team Providers Care Special Procedures Technologist Name Role Phone Toya Epps MD Primary Care Provider Encounter Details Date Type Department Care Team (Late st Contact Info) Description 12/29/2023 Orders Only [facility] Health Information Management [address] [place] [phone] Scanning, Provider Social History Tobacco Use Types Packs/Day Years Used Date Smoking Tobacco: Never Smokeless Tobacco: Never AUDIT-C Answer Date Recorded Q1: How often do you have a drink containing alc ohol? Monthly or less 08/09/2021 Q2: How many drinks containi ng alcohol do you have on a typical day when you are drinking? 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 Gender Identity Male 09/12/2021 8:13 PM CDT Sexual Orientation Not on file documented as of this encounter Plan of Treatment Not on file documented as of this encounter Procedures Procedure Name Priority Date/Time Associated Diagnosis Comments SCAN - LABS 12/29/2023 documented in this encounter Results * SCAN - LABS (12/29/2023) us Provider Scanning Final Result documented in this encounter Visit Diagnoses Not on filedocumented in this encounter Care Teams Special Procedures Technologist Relationship Specialty Start Date End Date Toya Epps MD [address] [place] [id number] PCP - General Internal Medicine 08/21/22 documented as of this encounter
--- OUTSIDE RECORDS SUMMARY | 2025-01-03 07:53 | XMS_ITS | Encounter Summary ---
Author Organization [facility] Healthcare Address [address] [place] [address] Care Team Providers Care Virtual Office Assistant Name Role Phone Toya Epps MD Primary Care Provider Toya Epps MD Primary Care Provider Encounter Details Date Type Department Care Team (Late st Contact Info) Description 12/29/1923 Orders Only [facility] Health Information Management [address] [place] [id number] Scanning, Provider Social History Tobacco Use Types Packs/Day Years Used Date Smoking Tobacco: Never Assessed Sex and Gender Information Value Date Recorded Sex Assigned at Not on file 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 Gender Identity Male 09/12/2021 8:13 PM CDT Sexual Orientation Not on file documented as of this encounter Plan of Treatment Not on file documented as of this encounter Procedures Procedure Name Priority Date/Time Associated Diagnosis Comments SCAN - LABS 12/29/1923 documented in this encounter Results * SCAN - LABS (12/29/1923) us Provider Scanning Final Result documented in this encounter Visit Diagnoses Not on filedocumented in this encounter Additional Health Concerns Infection Onset Date Last Indicated Resolved Time COVID: Suspected 09/01/2022 09/01/2022 09/01/2022 2:56 PM CDT COVID19 09/01/2022 09/01/2022 09/11/2022 3:05 AM CDT COVID: Recovered Comment:Added based on recent COVID infection. 09/11/2022 09/12/2022 01/09/2023 3:[address] documented as of this encounter Care Teams Virtual Office Assistant Relationship Specialty Start Date End Date Toya Epps MD PCP - General Internal Medicine 08/09/21 08/20/22 Toya Epps MD [address] [place] [address] PCP - General Internal Medicine 08/21/22 documented as of this encounter
--- OUTSIDE RECORDS SUMMARY | 2025-01-03 07:53 | XMS_ITS | Encounter Summary ---
Author Organization [facility] Address [address] [place] [id number] Care Team Providers Care Director Of Math Name Role Phone Javier Denny MD Primary Care Provider [phone] Encounter Details Date Type Department Care Team (Late st Contact Info) Description 04/25/2020 Prep for Procedure [facility] Pre-Ad[facility] [address] [place], [place] [id number] Santo Diaz MD [address] [address] [place], [place] [phone] Social History Tobacco Use Types Packs/Day Years Used Date Smoking Tobacco: Never Smokeless Tobacco: Never Alcohol Use Standard Drinks/Week Comments Not Currently 0 (1 standard drink = 0.6 oz pur e alcohol) AUDIT-C Answer Date Recorded Frequency of Alcohol Consumption Never 02/03/2020 Average Number of Drinks Not on file 020 Frequency of Binge Drinking Not on file 01/22 Sex and Gender Information Value Date Recorded Sex Assigned at Not on file Legal Sex Male 7:53 PM CDT Gender Identity Not on file Sexual Orientation Not on file COVID-19 Exposure Response Date Recorded In the last month, have you been in contact with someone who was confirmed or suspected to have Coronavirus / COVID-19? No / Unsure 04/25/2020 12:13 PM CDT documented as of this encounter Plan of Treatment Not on file documented as of this encounter Visit Diagnoses Diagnosis Preop examination- Primary Preoperative examination, unspecified documented in this encounter Additional Health Concerns Infection Onset Date Last Indicated Resolved Time COVID-19 Rule Out 05/01/2020 05/01/2020 05/02/2020 2:57 AM CDT documented as of this encounter Care Teams Director Of Math Relationship Specialty Start Date End Date Javier Denny MD [address] [place] [address] PCP - General FAMILY PRACTICE 01/11/20 documented as of this encounter
--- OUTSIDE RECORDS SUMMARY | 2025-01-03 07:53 | XMS_ITS | Clinical Summary ---
Author Organization [facility] Address [address] [place] [address] Care Team Providers Care Diabetes Physician Name Role Phone Javier Denny MD Primary Care Provider [phone] Allergies No known active allergies Medications valsartan-hydro chlorothiazide 80-12.5 MG tablet Take 1 tablet by mouth daily. 01/09/2020 Active rosuvastatin 5 MG tablet Take 5 mg by mouth nightly at bedtime. TAKES IT EVERY OTHER DAY Active MULTIPLE VITAMINS/MINERA LS OR Take 1 tablet by mouth daily. Active Active Problems Problem Noted Date Diagnosed Date S/P arthroscopy of left shoulder 05/02/2020 Elevated liver enzymes 04/06/2018 Resolved Problems Problem Noted Date Diagnosed Date Resolved Date Osteoarthritis of left acrom ioclavicular joint 02/03/2020 05/05/2020 Superior glenoid labrum lesi on of left shoulder, subsequent encounter 02/03/2020 0 Impingement syndrome of left shoulder 01/18/2020 05/05/2020 Immunizations Name Administration Dates Next Due Influenza Adult (Generic) 09/14/2019 Family History Medical History Relation Comments Anemia Father Diabetes Maternal Grandfather Stroke Maternal Grandmother Cancer Mother Diabetes Mother Hypertension Mother RENAL FAILURE Mother No Known Problems Paternal Grandfather No Known Problems Paternal Grandmother Hypertension Sister 1 Kidney Disease Sister 1 Other Sister 2 Relation Status Comments Father Alive Maternal Grandfather Maternal Grandmother Mother Paternal Grandfather Paternal Grandmother Sister 1 Alive Sister 2 Alive Social [...] of Binge Drinking Not on file 01/22 PHQ-2 Answer Date Recorded PHQ-2 Score - If the patient scores above 3, please move on to questions 3-9 0 05/30/2020 Sex and Gender Information Value Date Recorded Sex Assigned at Not on file Legal Sex Male 7:53 PM CDT Gender Identity Not on file Sexual Orientation Not on file Last Filed Vital Signs Vital Sign Reading Time Taken Comments Blood Pressure 124/66 10/05/2020 8:13 AM DIRECT MAIL MARKETER Pulse 57 10/05/2020 8:13 AM DIRECT MAIL MARKETER Temperature 36.7 C (98.1 F) 10/05/2020 8:13 AM DIRECT MAIL MARKETER Respiratory Rate 18 05/03/2020 11:4 0 AM CDT Oxygen Saturation 95% 05/03/2020 11: 40 AM CDT Inhaled Oxygen Concentration - - Weight 89.8 kg (198 lb) 10/05/2020 8:13 AM DIRECT MAIL MARKETER Height 171.5 cm (5' 7.5 ) 10/05/2020 8: 13 AM DIRECT MAIL MARKETER Patient reported Body Mass Index 30.55 10/05/2020 8:13 AM DIRECT MAIL MARKETER Plan of Treatment Health Maintenance Due Date Last Done Comments Colorectal Cancer Screening Colonoscopy (10 Years) 1955 Hepatitis C 1975 DTaP, Tdap and Td Vaccines ( 1 - Tdap) 1976 Zoster Vaccines (1 of 2) 2007 Pneumococcal Vaccine: 65+ Years (2 of 2 - PPSV23 or PCV20) 2022 12/27/2019 COVID-19 Vaccine ( - 2023-2 5 season) 2024 Influenza Adult (#1) 2024 09/04/2020, 09/14/2019 RSV Immunization or 60+ Years (1 - 1-dose 75+ series) 2032 Meningococcal B Vaccine Aged Out No l onger eligible based on patient's age to complete this topic Meningococcal Vaccine Aged Out No gunnar mihaela eligible based on patient's age to complete this topic RSV Immunizations Under 20 Months Aged Out No longer eligible b ased on patient's age to complete this topic Medical Devices Implanted Type Area Unit Director Device Identifier Shelf Expiration Date Model / Serial / Lot Implant [employer]posite Distal Biceps Repair - [id number] Implanted:Qty: 1 on 05/03/2020 by Santo Diaz MD at [facility] Left: Shoulder [employer] 01/21/2022 [id number] / / [id number] [place] Arthrex Pushlock Biocomposite 2.9 X 12.5mm - [id number] Implanted:Qty: 4 on 05/03/2020 by Santo Diaz MD at [facility] Left: Shoulder [employer] 10/23/2021 [id number] / / [id number] Insurance [facility] Care Teams Diabetes Physician Relationship Specialty Start Date End Date Javier Denny MD [address] [place] [id number] PCP - General FAMILY PRACTICE 01/11/20
--- OUTSIDE RECORDS SUMMARY | 2025-01-03 07:53 | XMS_ITS | Encounter Summary ---
Author Organization [facility] Address [address] [address] Care Team Providers Care Delivery Merchandiser Name Role Phone Jaye Denny MD Primary Care Provider [phone] Encounter Details Date Type Department Care Team (Late st Contact Info) Description 10/19/2018 Lab Requisition [facility] [address] [facility] [place] [phone] Myrtle Perea MD [address] [facility] [address] [place] [address] Social History Tobacco Use Types Packs/Day Years Used Date Smoking Tobacco: Never Smokeless Tobacco: Never Alcohol Use Standard Drinks/Week Comments No 0 (1 standard drink = 0.6 oz pur e alcohol) stopped 1 year ago. Sex and Gender Information Value Date Recorded Sex Assigned at Not on file Gender Identity Not on file Sexual Orientation Not on file documented as of this encounter Plan of Treatment Not on file documented as of this encounter Procedures Procedure Name Priority Date/Time Associated Diagnosis Comments DERMATOPATH TECHNICAL REPORT Routine 10/12/2018 12:00 AM FIRE PREVENTION ENGINEER documented in this encounter Results * DERMATOPATH TECHNICAL REPORT (10/12/2018 12:00 AM FIRE PREVENTION ENGINEER) Case Report Dermatopathology Report Case: [id number] Authorizing Provider: Myrtle Perea MD Collected: 10/12/2018 12:00 AM Pathologist: Ava Collier MD Received: 10/19/2018 06:17 AM Specimen: Skin, left lateral hand 10:50 AM [facility] Clinical History VV vs other. Irritated. 10:50 AM [facility] Gross Description Specimen A: Received is one formalin filled container labeled with the patient's name and designated left lateral hand. The specimen consists of a shave measuring [id number]. Jar 0. [facility] performed the technical component only. 10:50 AM [facility] Embedded Images 10:50 AM [facility] DISCLAIMER An external and internal positive and negative controls are appropriate for the histochemical, immunohistochemical and immunofluorescence stain(s) in this case (if any), except where stated explicitly. The performance characteristics of the stain(s) cited in this report were developed and its performance characteristic determined by the Dermatopathology Laboratory at [facility]. These tests need not be, and therefore are not, approved by the [place] Food and Drug Administration. The tests are used for clinical purposes. 10:50 AM [facility] Pathology/Cytolog y TISSUE SPECIMEN FROM SKIN / Unknown 10/12/2018 10/19/2018 6:17 AM [facility] Myrtle Perea MD LAB - PATHOLOGY/CYT OLOGY ORDERABLES DERMATOPATHOLOGY LABORATORY [facility] - Department of Dermatology [address] [place] [address] 5th Floor Lab [address] [phone] documented in this encounter Visit Diagnoses Not on filedocumented in this encounter Care Teams Delivery Merchandiser Relationship Specialty Start Date End Date Jaye Denny MD [address] [place], [place] [phone] PCP - General 06/16/18 documented as of this encounter
--- OUTSIDE RECORDS SUMMARY | 2025-01-03 07:54 | XMS_ITS | Clinical Summary ---
Author Organization [facility] Address [address] [place] [address] Care Team Providers Care Mechanic Recovery Name Role Phone Jaye Denny MD Primary Care Provider [phone] Source Comments [facility] Affiliates and Associated Physician Practices is amultiple site organization consisting of ambulatory clinics and hospital sitesin [place], [place], [place] and [place]. This disclosure is being madepursuant to the Care Everywhere program and may not contain all information available regarding this patient. Last updated 18.[facility] Allergies No known active allergies Medications * Be aware that medications may not be up to date on this document. Alwaysverify current medications with the patient. Medication Sig Dispensed Refills Start Date End Date Status Multiple Vitamins-Minerals (MULTIVITAMIN ADULT PO) Take by mouth Two times a week Active aspirin (ASPIRIN) 81 MG tablet Take 81 mg by mouth once daily as needed for Pain 3-4 times weekly Active valsartan-hydroCHLOROt hiazide (DIOVAN HCT) 80-12.5 MG tablet 0 09/08/2019 Active rosuvastatin (CRESTOR) 5 MG tablet Take 5 mg by mouth once daily Active Active Problems Problem Noted Date Diagnosed Date Elevated liver enzymes 04/06/2018 Immunizations Name Administration Dates Next Due INFLUENZA VACCINE, QUADR. (F LUZONE; FLULAVAL; FLUARIX; AFLURIA QUADRIVALENT; 6MO+), 0.5 ML (IIV4) 08/26/2021,09/04/2020,09/14/2019 Social History Tobacco Use Types Packs/Day Years [...] Comments Blood Pressure 119/73 01/17/2020 2:41 PM TICKET CLERK Pulse 51 01/17/2020 2:41 PM TICKET CLERK Temperature 36.8 C (98.2 F) 01/17/2020 2:41 PM TICKET CLERK Respiratory Rate 18 01/17/2020 2:41 PM TICKET CLERK Oxygen Saturation 99% 01/17/2020 2:41 PM TICKET CLERK Inhaled Oxygen Concentration - - Weight 89.8 kg (198 lb) 01/17/2020 2:41 PM TICKET CLERK Height 170.2 cm (5' 7 ) 09/09/2019 9:11 AM CDT Body Mass Index 31.01 09/09/2019 9:11 AM CDT Plan of Treatment Health Maintenance Due Date Last Done Comments COLOGUARD (AGES 45-75) - COLON CA SCREENING 1957 COLON MONITORING 1957 COLONOSCOPY - COLON CA SCREENING 1957 CT COLONOGRAPHY - COLON CA SCREENING 1957 Colorectal Cancer Screening 1957 FIT - COLON CA SCREENING 1957 FLEX SIG - COLON CA SCREENING 1957 DTAP/TDAP/TD VACCINES (1 - Tdap) 1976 PNEUMOCOCCAL VACCINE 50+ (1 of 1 - PCV) 2007 ZOSTER VACCINE (1 of 2) 2007 COVID-19 VACCINE (3 - 2023- season) 2024 02/23/2021, 01/26/2021 INFLUENZA VACCINE (#1) 2024 , 09/04/2020, 09/14/2019, Additional history exists DEPRESSION SCREENING 11/24/2024 MEDICARE AWV CALENDAR YEAR 2024 Respiratory Syncytial Virus (RSV) Vaccine Pt: or over 60 yrs (1 - 1-dose 75+ series) 2032 HEPATITIS C SCREENING Completed 04/06/2018 HEPATITIS B VACCINE Aged Out No longe r eligible based on patient's age to complete this topic HIB VACCINE Aged Out No longer eligi ble based on patient's age to complete this topic HPV VACCINE Aged Out No longer eligi ble based on patient's age to complete this topic MENINGOCOCCAL (Group B) VACCINE Aged Out No longer eligible based on patient's age to complete this topic MENINGOCOCCAL VACCINE Aged Out No gunnar mihaela eligible based on patient's age to complete this topic Goals Goal Patient Goal Type Associated Problems Recent Progress Patient-Stated? Author Medication Management General On track( 020 2:55 PM TICKET CLERK) No Maral Mcclelland RN Note: Expected end date: Ongoing Interventions: Take all medications as prescribed Make sure to request a refill of your medication at least one week prior to your last dose Procedures Procedure Name Priority Date/Time Associated Diagnosis Comments HEPATITIS C ANTIBODY Routine 04/06/2018 3:03 PM CDT Elevated liver enzymes from Last 3 Months or Most Recently Relevant to Health Maintenance Results * HEPATITIS C ANTIBODY (04/06/2018 3:03 PM CDT) Hepatitis C Antibody Non-react forrest Non-reac tive 04/06/2018 4:58 PM CDT [facility] Comment: Hepatitis C Antibody screen indicates [...] Morgan Baxter MD LAB - CHEMISTRY BRYN Up Organization Address City/State/ZIP Co de Phone Number [address] [phone] from Last 3 Months or Most Recently Relevant to Health Maintenance Care Teams Mechanic Recovery Relationship Specialty Start Date End Date Jaye Denny MD [address] [place] [address] PCP - General 06/16/18
--- OUTSIDE RECORDS SUMMARY | 2025-01-03 07:54 | XMS_ITS | Referral Summary ---
Author Organization [facility] Address [address] [place] [address] Care Team Providers Care Test And Balance Engineer Name Role Phone Jaye Denny MD Primary Care Provider [phone] Source Comments [facility],non[facility] Affiliates and Associated Physician Practices is amultiple site organization consisting of ambulatory clinics and hospital sitesin [place], [place], [place] and [place]. This disclosure is being madepursuant to the Care Everywhere program and may not contain all information available regarding this patient. Last updated 18.[facility] Allergies No known active allergies Medications * [...] Comments Blood Pressure 119/73 01/17/2020 2:41 PM CONTACT LENS BLOCKER AND CUTTER Pulse 51 01/17/2020 2:41 PM CONTACT LENS BLOCKER AND CUTTER Temperature 36.8 C (98.2 F) 01/17/2020 2:41 PM CONTACT LENS BLOCKER AND CUTTER Respiratory Rate 18 01/17/2020 2:41 PM CONTACT LENS BLOCKER AND CUTTER Oxygen Saturation 99% 01/17/2020 2:41 PM CONTACT LENS BLOCKER AND CUTTER Inhaled Oxygen Concentration - - Weight 89.8 kg (198 lb) 01/17/2020 2:41 PM CONTACT LENS BLOCKER AND CUTTER Height 170.2 cm (5' 7 ) 09/09/2019 9:11 AM CDT Body Mass Index 31.01 09/09/2019 9:11 AM CDT Plan of Treatment Not on file Goals Goal Patient Goal Type Associated Problems Recent Progress Patient-Stated? Author Medication Management General On track( 020 2:55 PM CONTACT LENS BLOCKER AND CUTTER) No Maral Mcclelland RN Note: Expected end [...] forrest Non-reac tive 04/06/2018 4:58 PM CDT [facility] Comment: Hepatitis C Antibody screen [...] Organization Address City/State/ZIP Co de Phone Number [address] [phone] from Last 3 Months or Most Recently Relevant to Health Maintenance Care Teams Test And Balance Engineer Relationship Specialty Start Date End Date Jaye Denny MD [address] [facility] [place], [place] [id number] PCP - General 06/16/18
--- NOTE | 2025-01-03 07:58 | ECG_ITS ---
Test Date: 2025-01-03 08:18:00 Measurements Intervals [place] Rate: 41 P: 63 CA: 153 QRS: 61 QRSD: 102 T: 62 QT: 452 QTc: 374 Interpretive Statements SINUS BRADYCARDIA BASELINE ARTIFACT- I, AVR, V1, V4-V6 ABNORMAL ECG No previous ECG available for comparison Electronically Signed On 01-03-2025 08:25:19 FORKLIFT OPERATOR by Ascencion Mayo D.O.
[2025-01-03 08:27] LABS: Basophils Percent Auto 0.6 % (0.2-1.2); Eosinophils Absolute Auto 0.2 K/mm3 (0-0.3); Eosinophils Percent Auto 3.7 % (0-4.4); Hematocrit 41.1 % (42.0-52.0); Hemoglobin 14.2 g/dL (14.0-18.0); Immature Granulocyte Absolute 0.02 K/mm3 (0.00-0.031); Immature Granulocyte Percent A 0.4 % (0-0.5); Lymphocytes Absolute Auto 1.72 K/mm3 (0.9-3.2); Lymphocytes Percent Auto 34.9 % (18.3-44.2); Mean Corpuscular HGB Conc 34.5 g/dl (32-36); Mean Corpuscular Hemoglobin 30.7 pg (26-34); Mean Platelet Volume 10.5 fl (7.4-10.4); Monocytes Absolute Auto 0.4 K/mm3 (0.1-0.6); Monocytes Percent Auto 8.3 % (2.6-8.5); Neutrophils Absolute Auto 2.6 K/mm3 (1.3-6.7); Neutrophils Percent Auto 52.1 % (45.5-73.1); Platelet Count Result 152 k/mm3 (150-375); Red Blood Count 4.62 M/mm3 (4.6-6.20); Red Cell Distribution Width 12.1 % (11.5-14.5); White Blood Count 4.9 K/mm3 (4.5-10.0)
[2025-01-03 08:44] LABS: Partial Thromboplastin Time 28.8 Seconds (22.3-36.8); Prothrombin Time 13.7 Seconds (11.1-14.7)
[2025-01-03 08:47] LABS: Anion Gap 9 mmol/L (4-12); Blood Urea Nitrogen 24 mg/dL (9-20); Calcium 9.4 mg/dL (8.4-10.2); Carbon Dioxide 28 mmol/L (22-30); Chloride 101 mmol/L (98-107); Estimated Glomerular Filt Rate > 60; Glucose 163 mg/dL (65-110); Potassium 4.4 mmol/L (3.4-5.0); Sodium 138 mmol/L (137-145)
== END 2025-01-03 07:48 | disposition home or self-care (01) ==
LOC: ANHSURGERY 07:50
PROVIDERS: Anesthesiology; PCP Internal Medicine; Visit Provider Surgery
DX: Z01.818 Encounter for other preprocedural examination (principal); K43.2 Incisional hernia without obstruction or gangrene; I12.9 Hypertensive chronic kidney disease with stage 1 through stage 4 chronic kidney disease, or unspecified chronic kidney disease; N18.9 Chronic kidney disease, unspecified
CPT/HCPCS: 36415; 80048; 85025; 85610; 85730; 86850; 86900; 86901; 93005

== ENCOUNTER 2025-01-05 01:04 | Day surgery (SDC) | payer MEDICARE, SELFPAY ==
--- NOTE | 2024-12-29 08:58 | PC.NURSE ---
Report to the Outpatient Waiting Room, entrance under the green pavilion located off [facility], at time _8:30 am on date _01/05/25 . Planned Procedure Time: __10:30 am .? Time changes happen often and if your time is changed the preop area will call you the afternoon before. - You and your visitor will be asked to self-screen and do not enter if you have any COVID symptoms. Please call surgeon if you need to reschedule. - A mask is optional within the hospital at this time. Patients may have clear liquids (water, carbonated beverages, clear teas, apple juice) until 3 hours prior to surgery(7:30 am) with a maximum of 20 ounces. - No food from midnight until time of surgery and no smoking, or chewing Tabacco (or any form of nicotine). No chewing gum, candy or mints. - Take only the following medications with a SIP of water on the morning of surgery: NONE DO NOT STOP ANY OF YOUR OTHER PRESCRIPTION MEDICATIONS PRIOR TO SURGERY EXCEPT THE FOLLOWING Medications to discontinue per physician NONE Please no make-up, nail burkinan, hairspray, perfume, deodorant, or body powder the day of surgery.? No jewelry (including any body piercings) or valuables the day of surgery, leave them at home.? Please take a shower or bath the night before, or the morning of, surgery with an antibacterial soap.? Wear comfortable, loose fitting clothing.? Children are encouraged to wear pajamas. - Jewelry must be removed prior to entering the operating room.? Rings and piercings that are not removed may be cut off. - The hospital will not accept responsibility for valuables.? - Please leave all valuables, including medications, at home the day of surgery. If you are going home after surgery, a licensed bellman driver must drive you home.? - NO public transportation without another adult if you receive anesthesia. - We recommend that an adult stay with you for 24 hours following discharge. - We also recommend that you do not drive, make important decision, drink alcoholic beverages, or take any drugs that were not prescribed by your health care provider for at least 24 hours after your discharge time. Hold all vitamins and supplements for 3 days per anesthesiologist. LAST DOSE 01/01/25 Follow any additional instructions given to you from your surgeon. Telephone instructions given to __PATIENT AND YARELI and asked if any additional questions and then verbalized understanding. Patient advised to call surgeon office or pre surgery nurse liaison [phone] if any additional questions.
[2024-12-29 09:13] VITALS: BMI 27.8
--- NOTE | 2025-01-04 09:32 | P.SS_ITS ---
Same Day Admit/Disch: HPI History of Present Illness Chief complaint: incisional hernia with 2 cm defect Narrative: Nhan Bundy is a 69 year old male Will underwent a robotic prostatectomy with lymph node dissection about 1 year ago. He has developed a bulge at his extraction site. This bulges and is uncomfortable with straining. It reduces when lying down. He was seen in the office and noted to have a 2 x 1 cm incisional hernia. He is taken to surgery at this time for robotic laparoscopic repair with mesh. He is known to have diet controlled type 2 diabetes and hypertension. He has chronic sinus bradycardia for at least 5 years with heart rates generally in the 40s. [facility] Past Medical History Medical History Kidney disease Adenocarcinoma of prostate Type 2 diabetes mellitus with complication, without long-term current use of insulin Surgical History Surgical History History of appendectomy 1970 Family History Family History Mother Diabetes mellitus Family history of obesity Depression Hypertension Cancer Father Patient's father is in good health Grandparent Carcinoma of colon Diabetes mellitus Social History Social History Smoking status: Never smoker Alcohol intake: current Drinks per week: 1 Substance use: never Do You Feel Safe in your Home?: No Lack of Transportation: No Lack of Food: Never True Current Housing: I Have Housing Concerned About Future Housing: No Difficulty Paying Gas/Electric Bills: No Difficulty Paying for Meds: No Currently Unemployed: No Education: Master's Degree or Higher Difficulty w/ Childcare or Family Care: No Living arrangements: with family Additional living arrangements comments: Spiritual care concerns: No Same Day Admit/Disch: Med Pre-admit Medications Home Medications ?Medication ?Instructions ?Recorded ?Confirmed ?Type rosuvastatin 5 mg tablet (Crestor) 5 mg PO DAILY #90 tabs 07/10/20 12/29/24 Rx ascorbic acid (vitamin C) 500 mg 500 mg PO 5XW 12/29/23 01/05/25 History capsule cholecalciferol (vitamin D3) 50 50 mcg PO 5XW 12/29/23 01/05/25 History mcg (2,000 unit) capsule multivitamin 1 tablet PO 2XW 12/29/23 01/05/25 History valsartan 80 1 tablet PO QAM 12/29/23 01/05/25 History mg-hydrochlorothiazide 12.5 mg tablet zinc 25 mg tablet 30 mg PO 5XW 12/29/23 01/05/25 History ibuprofen 200 mg tablet (Advil) 400 mg PO Q4H PRN pain 12/29/24 12/29/24 History oxycodone-acetaminophen 5 mg-325 1 - 2 tablet PO Q6H PRN pain #20 01/05/25 Rx mg tablet (Percocet) tabs Review of Systems Review of Systems All systems reviewed & are unremarkable except as noted in HPI and below ( HPI) Exam Const: General: comfortable, no acute distress, alert and awake HENMT: Head: normocephalic and atraumatic Mouth: Yes Normal oral and palatal mucosa present Eyes: Conjunctivae: conjunctivae normal Pupils: Equal, round and reactive pupils present EOM: EOMs intact bilaterally Neck: Neck: normal visual inspection, no lymphadenopathy and nontender Resp: Effort & Inspection: normal respiratory effort Auscultation: clear to auscultation bilaterally Cardio: Rate: regular rate Rhythm: regular rhythm Heart sounds: no gallops, no murmurs and no rubs GI: Inspection: no abdominal wall ecchymosis, non-distended, scaphoid and visible herniation ( in area of scar) GI Palp: Yes Soft to palpation, No Tenderness to palpation present (GI), No Hepatomegaly present, No Splenomegaly present and Yes Hernia present incisional < 3 cm ( 2 cm x 1 cm defect just above the middle of his extraction scar) Skin: Lesions: no lesions Rashes: no rashes Neuro: General: no focal motor deficits and CN's II-XI intact bilaterally Cranial nerves: Yes Equal, round and reactive pupils present, Yes Bilaterally intact EOM present, Yes facial symmetry and Yes Midline tongue present Speech: normal speech Motor exam (neuro): 5/5 motor strength present throughout and Motor abnormalities not present Extrem: General: no clubbing, cyanosis or edema and edema Psych: Affect: normal affect Thought process: Normal thought process present Insight: Good insight present (Psych) DS: Summary Time Spent with Patient Time attestation: Total time spent providing and/or coordinating discharge services: DS: Admitting Diagnosis Discharge Date 01/05/2025 Admitting Diagnosis * incisional hernia with 2 cm defect, reducible- after discussion, patient agrees to proceed with robotic laparoscopic incisional hernia repair with mesh. The procedure, risks, benefits, alternatives have been discussed. The usual length of the surgery and length of recovery has been discussed. Patient is aware this is an outpatient procedure but will require some recovery time. All questions were answered. He understands and agrees to go ahead. * Diet-controlled type 2 diabetes * essential hypertension * chronic sinus bradycardia -heart rate 40s DS: Discharge Diagnosis Discharge Diagnosis (1) Incisional hernia without obstruction or gangrene: Code(s): K43.2 - Incisional hernia without obstruction or gangrene Status: Chronic Assessment and Plan: Robotic laparoscopic repair performed by Dr. Burkett on 01/05/2025 Discharge Plan Discharge Patient Disposition: Home, Self-Care Discharge Instructions: 1. May shower the day after surgery over incisions. 2. Call office for: -Wound increasingly painful or bleeding -Vomiting -Fever of greater than 101 degrees 3. Expect some blood on dressing and old blood on skin. 4. If no bowel movement for three days, take 1 oz. (30 ml) Milk of Magnesia, if no results, take Fleets enema. 5. No heavy lifting > 15-20 pounds for 2 weeks. 6. No driving for 3 days or while taking narcotic pain medications. 7. Up walking 10-30 minutes three times per day. 8. Resume previous home medications. 9. Follow-up 10-14 days in office for wound check or as previously scheduled. 10. Oral pain medications prescription to be sent home with patient. 11. NUTRITION: Start out by drinking fluids and increase your diet as tolerated. If you experience nausea, try dry toast, crackers, and 7-UP. If nausea or vomiting persists, contact your surgeon?s office. Patient Language: Sami Stand Alone Forms: General Discharge Instructions Follow-up/Referrals: Robin Burkett MD [Physician] - 2 Weeks Discharge Medications: New oxycodone-acetaminophen [Percocet] 5-325 mg tablet 1 - 2 tablet PO Q6H PRN (Reason: pain) Qty: 20 0RF Continued multivitamin Tablet 1 tablet PO 2XW zinc 25 mg Tablet 30 mg PO 5XW cholecalciferol (vitamin D3) 50 mcg (2,000 unit) Capsule 50 mcg PO 5XW ascorbic acid (vitamin C) 500 mg Capsule 500 mg PO 5XW valsartan-hydrochlorothiazide 80-12.5 mg tablet 1 tablet PO QAM Rx Instructions: TAKE 1 TABLET BY MOUTH EVERY DAY ibuprofen [Advil] 200 mg tablet 400 mg PO Q4H PRN (Reason: pain) rosuvastatin [Crestor] 5 mg tablet 5 mg PO DAILY Qty: 90 3RF
[2025-01-05] VITALS (11 sets, daily range): BP systolic 99–162; BP diastolic 55–78; PULSE 43–49; RESP 11–20; TEMP 36.2; O2SAT 98–100; BMI 28.3
--- OUTSIDE RECORDS SUMMARY | 2025-01-05 01:07 | XMS_ITS | Clinical Summary ---
Author Organization [facility] Address [address] [place] [address] Care Team Providers Care Rack Puncher Name Role Phone Jaye Denny MD Primary Care Provider [phone] Source Comments [facility] Affiliates and Associated Physician Practices is amultiple site organization consisting of ambulatory clinics and hospital sitesin [place], [place], [place] and [place]. This disclosure is being madepursuant to the Care Everywhere program and may not contain all information available regarding this patient. Last updated 18.[facility] Allergies No known active allergies Medications * [...] Comments Blood Pressure 119/73 01/17/2020 2:41 PM TREE TOPPER Pulse 51 01/17/2020 2:41 PM TREE TOPPER Temperature 36.8 C (98.2 F) 01/17/2020 2:41 PM TREE TOPPER Respiratory Rate 18 01/17/2020 2:41 PM TREE TOPPER Oxygen Saturation 99% 01/17/2020 2:41 PM TREE TOPPER Inhaled Oxygen Concentration - - Weight 89.8 kg (198 lb) 01/17/2020 2:41 PM TREE TOPPER Height 170.2 cm (5' 7 ) 09/09/2019 [...] Management General On track( 020 2:55 PM TREE TOPPER) No Maral Mcclelland RN Note: Expected end [...] forrest Non-reac tive 04/06/2018 4:58 PM CDT [facility] Comment: Hepatitis C Antibody [...] Organization Address City/State/ZIP Co de Phone Number [address] [phone] from Last 3 Months or Most Recently Relevant to Health Maintenance Care Teams Rack Puncher Relationship Specialty Start Date End Date Jaye Denny MD [address] [facility] [place] [place] [address] PCP - General 06/16/18
--- OUTSIDE RECORDS SUMMARY | 2025-01-05 01:07 | XMS_ITS | Encounter Summary ---
Author Organization [facility] Address [address] [place] [id number] Care Team Providers Care Truck Loader Name Role Phone Javier Denny MD Primary Care Provider Encounter Details Date Type Department Care Team (Late st Contact Info) Description 04/25/2020 Prep for Procedure [facility] Pre-Admission Testing [address] [place], [place] [id number] Santo Diaz MD [address] [place] [address] [place], [place] [id number] Social History Tobacco Use Types Packs/Day Years [...] documented as of this encounter Care Teams Truck Loader Relationship Specialty Start Date End Date Javier Denny MD [address] [place] [address] PCP - General FAMILY PRACTICE 01/11/20 documented as of this encounter
--- OUTSIDE RECORDS SUMMARY | 2025-01-05 01:07 | XMS_ITS | Patient Health Summary ---
Author Organization [facility] Address [address] [facility] [place] [address] Care Team Providers Care Cath Lab Nurse Name Role Phone Jaye Denny MD Primary Care Provider [phone] Note from [facility],non-owned Affiliates and Associated Physician Practices is amultiple site organization consisting of ambulatory clinics and hospital sitesin [place], [place], [place] and [place]. This disclosure is being madepursuant to the Care Everywhere program and may not contain all information available regarding this patient. Last updated 18.[facility] Allergies No known active allergies Medications * [...] Comments Blood Pressure 119/73 01/17/2020 2:41 PM SYSTEMS ARCHITECTURE ANALYST Pulse 51 01/17/2020 2:41 PM SYSTEMS ARCHITECTURE ANALYST Temperature 36.8 C (98.2 F) 01/17/2020 2:41 PM SYSTEMS ARCHITECTURE ANALYST Respiratory Rate 18 01/17/2020 2:41 PM SYSTEMS ARCHITECTURE ANALYST Oxygen Saturation 99% 01/17/2020 2:41 PM SYSTEMS ARCHITECTURE ANALYST Inhaled Oxygen Concentration - - Weight 89.8 kg (198 lb) 01/17/2020 2:41 PM SYSTEMS ARCHITECTURE ANALYST Height 170.2 cm (5' 7 ) 09/09/2019 [...] 04/06/2018) Performed for Elevated liver enzymes * TIXBG-5-[id number] BLOOD PHENOTYPING PANEL(Performed 04/06/2018) Performed for Elevated [...] * CBC WITH DIFFERENTIAL (01/14/2020 8:07 AM SYSTEMS ARCHITECTURE ANALYST) Only the most recent of4 resultswithin the [...] Comment: REPORT COMMENT: FASTING:YES Test Performed at: [facility] [id number] [place] [address] CHARLIE ECKERT DO,MPH Blood BLOOD SPECIMEN / Unknown 01/14/2020 8:07 AM SYSTEMS ARCHITECTURE ANALYST 01/14/2020 8:08 AM SYSTEMS ARCHITECTURE ANALYST Morgan Baxter MD LAB - HEMATOLOGY ORD ERABLES [facility] [address] [place] [address] * (ABNORMAL) COMPREHENSIVE METABOLIC PANEL (01/14/2020 8:07 AM SYSTEMS ARCHITECTURE ANALYST) Only the most recent of5 resultswithin the [...] approximately 13% higher for people identified as -[place]. eGFR by MDRD 55(L) > OR = [...] 46 U/L [facility] Comment: Test Performed at: [facility] [address] [place] [address] CHARLIE ECKERT DO,MPH Blood BLOOD SPECIMEN / Unknown 01/14/2020 8:07 AM SYSTEMS ARCHITECTURE ANALYST 01/14/2020 8:08 AM SYSTEMS ARCHITECTURE ANALYST Morgan Baxter MD LAB - CHEMISTRY [place] Performing Organization Address [facility] Co de Phone Number [facility] [address] [place] [address] * (ABNORMAL) GGT (08/17/2019 7:12 AM CDT) Only the most recent of3 resultswithin the time period is included. GGT 213(H) 3 - 70 U/L [facility] Comment: Test Performed at: [place]. [id number] CHARLIE ECKERT DO,MPH 08/17/2019 7:12 AM CDT 08/17/2019 7:13 AM CDT Morgan Baxter MD LAB - CHEMISTRY [place] Performing Organization Address [facility] de Phone Number [facility] [phone] [place] [address] * FERRITIN (11/13/2018 7:45 AM SYSTEMS ARCHITECTURE ANALYST) Only the most recent of2 resultswithin the time period is included. Pathologist [facility] Ferritin 221 20 - 380 ng/mL [facility] Comment: REPORT COMMENT: FASTING:YES Test Performed at: [facility] [address] CHARLIE ECKERT DO,MPH Blood BLOOD SPECIMEN / Unknown 11/13/2018 7:45 AM SYSTEMS ARCHITECTURE ANALYST 11/13/2018 7:45 AM SYSTEMS ARCHITECTURE ANALYST Morgan Bxater MD LAB - CHEMISTRY [place] Performing Organization Address [facility] Co de Phone Number [facility] [address] [place] [address] * DERMATOPATH TECHNICAL REPORT (10/12/2018 12:00 AM SYSTEMS ARCHITECTURE ANALYST) Case Report Dermatopathology Report Case: [id number] Authorizing Provider: Myrtle Perea MD Collected: 10/12/2018 12:00 AM Pathologist: Ava Collier MD Received: 10/19/2018 06:17 AM Specimen: Skin, left lateral hand 10:50 AM [facility] DERMATOPATHOLOGY LABORATORY Clinical History VV vs other. Irritated. 10:50 AM [facility] DERMATOPATHOLOGY LABORATORY Gross Description Specimen A: Received is one formalin filled container labeled with the patient's name and designated left lateral hand. The specimen consists of a shave measuring [id number]. Jar 0. [facility] Dermatopathology Laboratory performed the technical component only. 10:50 AM [facility] DERMATOPATHOLOGY LABORATORY Embedded Images 10:50 AM [facility] DERMATOPATHOLOGY LABORATORY DISCLAIMER An external and internal positive and negative controls are appropriate for the histochemical, immunohistochemical and immunofluorescence stain(s) in this case (if any), except where stated explicitly. The performance characteristics of the stain(s) cited in this report were developed and its performance characteristic determined by the Dermatopathology Laboratory at [facility]. These tests need not be, and therefore are not, approved by the [place] Food and Drug Administration. The tests are used for clinical purposes. 10:50 AM [facility] DERMATOPATHOLOGY LABORATORY Pathology/Cytolog y TISSUE SPECIMEN FROM SKIN / Unknown 10/12/2018 10/19/2018 6:17 AM SYSTEMS ARCHITECTURE ANALYST Myrtle Perea MD LAB - PATHOLOGY/CYT OLOGY ORDERABLES DERMATOPATHOLOGY LABORATORY [facility] - Department of Dermatology [address] [place] [address] 5th Floor Lab [address] [phone] * MRI ABDOMEN W MRCP WWO CONT W3D (06/16/2018 7:55 AM CDT) Anatomical Region Laterality Modality Magnetic Resonan ce 06/16/2018 9:59 AM CDT Impressions 06/16/2018 1:56 PM CDT IMPRESSION: 1. Mild diffuse hepatic steatosis. Dictated by Davy Gardner MD (residential sales consultant). I, Dr. THADDEUS MCMAHON M.D. have personally [...] hepatic steatosis. Dictated by Davy Gardner MD (residential sales consultant). I, Dr. THADDEUS MCMAHON M.D. have personally reviewed and interpreted this examination/study. This report was electronically signed by THADDEUS MCMAHON M.D. on06/16/2018 1:56 PM . Morgan Baxter MD MR ORDERABLES * CREATININE BLOOD - POCT (IP) [facility] (06/16/2018 7:10 AM CDT) Creatinine POCT 1.23 0.3 - 1.3 mg/dL [facility] POCT TESTING Comment:60 eGFR POCT 60 60 ml/min [facility] POCT TESTING Blood BLOOD SPECIMEN / Unknown 06/16/2018 7:10 AM CDT Morgan Baxter MD LAB - POINT OF CARE ORDERABLES [facility] POCT TESTING [address] [phone] * PT-INR [facility] (04/06/2018 3:03 PM CDT) Pathologist [facility] PT 13.9 12.1 - 14.8 Seconds 04/06/2018 3:58 PM CDT [facility] LABORATORY HOSPITAL INR 1.1 See Comment 04/06/2018 3:58 PM CDT [facility] LABORATORY [facility] Comment: Suggested therapeutic range for [...] Baxter MD LAB - COAGULATION OR DERABLES [address] [phone] * MITOCHONDRIAL ANTIBODY SCREEN (04/06/2018 3:03 PM CDT) [facility] Mitochondrial M2 Antibody 3.1 0.0 - 20.0 Units 04/08/2018 11:31 AM CDT [facility] Comment: Mitochondrial M2 Antibody Numeric Result Interpretation: <20.1 Units: Negative 20.1 - 24.9 Units: Equivocal >24.9 Units: Positive Blood BLOOD SPECIMEN / Unknown Lab Venipuncture / Unknown 04/06/2018 3:03 PM CDT 04/06/2018 3:43 PM CDT Morgan Baxter MD LAB - CHEMISTRY ORDE RABLES [address] [phone] * JFXPO-0-FSRHZVCIFHA BLOOD PHENOTYPING PANEL (04/06/2018 3:03 PM CDT) [facility] Auhla-0-Dxzgdhdilq n 126 90 - 200 mg/dL 04/10/2018 3:18 PM CDT [facility] ([facility]) Phenotype (PI) MM 04/10/2018 3:18 PM CDT [facility]) Comment: Phenotype Population A-1-AT Concentration Incidence [...] PM CDT 04/06/2018 3:44 PM CDT Narrative [facility] ([facility]) - 04/10/2018 3:18 PM CDT Performed at: [address] [place] [id number] Land Leveler: Hunter Saucedo PhD, Phone: [phone] Performed at: [address] [place] [address] [id number] Land Leveler: Charlie Jones MD, Phone: [phone] Morgan Baxter MD LAB - CHEMISTRY [place] [facility]) [address] [place] [address] * EDITH BLOOD SCREEN W/REFLEX TITER (04/06/2018 3:03 PM CDT) EDITH Negative 04/07/2018 5:13 PM CDT [facility] ([facility]) Comment: Negative <1:80 Borderline 1:80 Positive >1:80 Blood BLOOD SPECIMEN / Unknown Lab Venipuncture / Unknown 04/06/2018 3:03 PM CDT 04/06/2018 3:43 PM CDT Narrative [facility] ([facility]) - 04/07/2018 5:13 PM CDT Performed at: [address] [place] [id number] Land Leveler: Hunter Saucedo PhD, Phone: [phone] Morgan Baxter MD LAB - CHEMISTRY ORDE RABLES Performing Organization Address City/[facility]/ZIP Co de Phone Number [facility]) [address] [place] [address] * MICROSOMAL ANTIBODY LIVER/KIDNEY (04/06/2018 3:03 PM CDT) Pathologist [facility] Liver-Kidney Microsomal Antibody <1.0 0.0 - 20.0 Units 04/07/2018 3:19 PM CDT [facility] ([facility]) Comment: Negative 0.0 - 20.0 Equivocal 20.1 - 24.9 Positive >24.9 LKM type 1 antibodies are detected in patients with autoimmune hepatitis type 2 and in up to 8% of patients with chronic HCV infection. Blood BLOOD SPECIMEN / Unknown Lab Venipuncture / Unknown 04/06/2018 3:03 PM CDT 04/06/2018 3:44 PM CDT Narrative [facility] ([facility]) - 04/07/2018 3:19 PM CDT Performed at: [facility] [address] [place], [place] [id number] Land Leveler: Hunter Saucedo PhD, Phone: [phone] Morgan Baxter MD LAB - CHEMISTRY [place] Performing Organization Address [facility] Co de Phone Number [facility]) [address] [place] [address] * (ABNORMAL) NUCLEOTIDASE 5- (04/06/2018 3:03 PM CDT) Pathologist [facility] 5'-Nucleotidase 14(H) 0 - 10 IU/L 04/08/2018 12:17 PM CDT [facility] ([facility]) Blood BLOOD SPECIMEN / Unknown Lab Venipuncture / Unknown 04/06/2018 3:03 PM CDT 04/06/2018 3:43 PM CDT Narrative [facility] ([facility]) - 04/08/2018 12:17 PM CDT Performed at: - [address] [id number] Land Leveler: Charlie Jones MD, Phone: [phone] Morgan Baxter MD LAB - CHEMISTRY [place] [facility] ([facility]) [address] [place] [address] * SMOOTH MUSCLE ANTIBODY (04/06/2018 3:03 PM CDT) F-Actin Antibody IgG 5.6 0.0 - 19.9 Units 04/08/2018 11:31 AM CDT [facility] Comment: F-Actin Antibody Numeric Result Interpretation: <20.0 Units: Negative 20.0 - 30.0 Units: Weak Positive >30.0 Units: Moderate to Strong Positive Blood BLOOD SPECIMEN / Unknown Lab Venipuncture / Unknown 04/06/2018 3:03 PM CDT 04/06/2018 3:43 PM CDT Morgan Baxter MD LAB - SEROLOGY ORDER YONNY Performing Organization Address [facility]/ZIP Co de Phone Number [address] [phone] * HEPATITIS B CORE ANTIBODY (04/06/2018 3:03 PM CDT) HBc Antibody Total Non-reacti ve Non-reacti ve 04/06/2018 4:30 PM CDT [facility] Blood BLOOD SPECIMEN / Unknown Lab Venipuncture / Unknown 04/06/2018 3:03 PM CDT 04/06/2018 3:44 PM CDT Morgan Baxter MD LAB - CHEMISTRY [place] Performing Organization Address City/[facility]/ZIP Co de Phone Number [address] [phone] * HEPATITIS B SURFACE ANTIGEN W RFLX CONFIRMATION (04/06/2018 3:03 PM CDT) Hepatitis B Virus Surface Antigen Non-reacti ve Non-reacti ve 04/06/2018 4:28 PM CDT [facility] Blood BLOOD SPECIMEN / Unknown Lab Venipuncture / Unknown 04/06/2018 3:03 PM CDT 04/06/2018 3:43 PM CDT Morgan Baxter MD LAB - CHEMISTRY [place] [address] [phone] * HEPATITIS C ANTIBODY (04/06/2018 3:03 PM CDT) [facility] Hepatitis C Antibody Non-react forrest Non-reac tive 04/06/2018 4:58 PM CDT [facility] LABORATORY [facility] Comment: Hepatitis C Antibody screen [...] [place] Performing Organization Address [facility]/ZIP Co de Phone Number [address] [phone] * HEPATITIS A ANTIBODY (04/06/2018 3:03 PM CDT) [facility] Hepatitis A Virus Antibody Total Negative Negative 04/07/2018 9:21 AM CDT [facility] ([facility]) Blood BLOOD SPECIMEN / Unknown Lab Venipuncture / Unknown 04/06/2018 3:03 PM CDT 04/06/2018 3:44 PM CDT Narrative [facility] ([facility]) - 04/07/2018 9:21 AM CDT Performed at: [facility] [address] [place], [place] [id number] Land Leveler: Hunter Saucedo PhD, Phone: [phone] Morgan Baxter MD LAB - CHEMISTRY [place] [facility] ([facility]) [address] [place] [address] Care Teams Cath Lab Nurse Relationship Specialty Start Date End Date Jaye Denny MD [address] [place] [address] PCP - General 06/16/18
--- OUTSIDE RECORDS SUMMARY | 2025-01-05 01:07 | XMS_ITS | Encounter Summary ---
Author Organization [facility] Healthcare Address [address] [place] [address] Care Team Providers Care Payroll Machine Operator Name Role Phone Toya Epps MD Primary Care Provider Toya Epps MD Primary Care Provider Encounter Details Date Type Department Care Team (Late st Contact Info) Description 12/29/1923 Orders Only [facility] Health Information Management [address] [place] [address] Scanning, Provider Social History Tobacco Use Types Packs/Day Years Used Date Smoking Tobacco: Never Assessed Sex and Gender Information Value Date Recorded Sex Assigned at Not on file Legal Sex Male 8:24 PM CRAPS DEALER Gender Identity Male 09/12/2021 8:13 PM CDT [...] documented as of this encounter Care Teams Payroll Machine Operator Relationship Specialty Start Date End Date Toya Epps MD PCP - General Internal Medicine 08/09/21 08/20/22 Toya Epps MD [address] [place] [address] PCP - General Internal Medicine 08/21/22 documented as of this encounter
--- OUTSIDE RECORDS SUMMARY | 2025-01-05 01:07 | XMS_ITS | Referral Summary ---
Author Organization [facility] Address [address] [place] [phone] Care Team Providers Care Superintendent Terminal Name Role Phone Toya Epps MD Primary Care Provider Encounters Date Type Department Care Team Description 10/25/2024 8:00 AM FORMING TUBE SELECTOR Office Visit [facility] Primary Care [address] [place] [address] [place] [phone] Rachael Pang NP Encounter for general [...] 09/30/2022 Assessment & Plan (09/30/2022 11:59 AM FORMING TUBE SELECTOR): The patient has insomnia. We did discuss sleep restriction therapy as well as cognitive behavioral therapy for insomnia. I did give him copies of the 2 brochures that are published by the [place] [employer] entitled - How [...] [employer]. Assessment & Plan (09/30/2022 11:58 AM FORMING TUBE SELECTOR): The patient continues to benefit from CPAP at 10 cm water pressure. He is new to Medicare. I did tell him that he may require a new nocturnal polysomnogram in order to receive a new CPAP unit. I will order the new unit through [facility]. He will follow-up with me in 3 months. Controlled type 2 diabetes m ellitus without complication, without long-term current use of insulin ([facility]) 08/20/2022 Type 2 diabetes mellitus with chronic [...] D ose, Split, Preservative Free, Intramuscular 09/13/2024 Electron Database SARS-CoV-2 Monovalent Vaccination (12+ Yrs) PURPLE 09/17/2021 [...] on file Legal Sex Male 8:24 PM FORMING TUBE SELECTOR Gender Identity Male 09/12/2021 8:13 PM CDT Sexual Orientation Not on file Last Filed Vital Signs Vital Sign Reading Time Taken Comments Blood Pressure 122/68 10/25/2024 7:49 AM FORMING TUBE SELECTOR Pulse 57 10/25/2024 7:49 AM FORMING TUBE SELECTOR Temperature 35.8 C (96.5 F) 10/25/2024 7:49 AM FORMING TUBE SELECTOR Respiratory Rate 16 07/21/2024 12:40 PM CDT Oxygen Saturation 98% 10/25/2024 7:49 AM FORMING TUBE SELECTOR Inhaled Oxygen Concentration - - Weight 83 kg (183 lb) 10/25/2024 7:49 AM FORMING TUBE SELECTOR Height 172.7 cm (5' 8 ) 10/25/2024 7:49 AM FORMING TUBE SELECTOR Body Mass Index 27.83 10/25/2024 7:49 AM FORMING TUBE SELECTOR Plan of Treatment Not on file Procedures Procedure Name Priority Date/Time Associated Diagnosis Comments BASIC METABOLIC PANEL Routine 08/26/2024 7:10 AM CDT HEMOGLOBIN A1C Routine 08/26/2024 7:10 AM CDT Controlled type 2 diabetes mellitus without complication, without long-term current use of insulin ([facility]) (HCC) ALBUMIN CREATININE RATIO, URINE Routine 08/26/2024 7:10 AM CDT COLONOSCOPY 07/21/2024 11:54 AM CDT PSA SCREEN Routine 09/16/2023 9:36 AM CDT High prostate specific antigen (PSA) LIPID PANEL Routine 08/14/2023 7:25 AM CDT Routine [facility] DIABETES EYE EXAM Routine 10/11/2022 from [...] LAB URINE ORD ERABLES Final Result [facility] [address] [phone] * (ABNORMAL) Hemoglobin A1c (08/26/2024 7:10 AM CDT) Hgb A1C 6.4(H) <5.7 % of total Hgb [facility] Comment: For someone without known diabetes, [...] LAB BLOOD ORD ERABLES Final Result [facility] [address] [place] [address] * (ABNORMAL) Basic metabolic panel (08/26/2024 7:10 AM CDT) Glucose 117(H) 65 - 99 mg/dL [facility] Comment: Fasting reference interval For someone without known diabetes, a glucose value between 100 and 125 mg/dL is consistent with prediabetes and should be confirmed with a follow-up test. BUN 20 7 - 25 mg/dL [facility] Creatinine 1.42(H) 0.70 - 1.35 mg/dL [facility]il eGFR 54(L) > OR = 60 mL/min/1.7 3m2 [facility] BUN/creat ratio 14 6 - 22 (calc) [facility] Sodium 137 135 - 146 mmol/L [facility] Potassium, pl 4.6 3.5 - 5.3 mmol/L [facility] Chloride 100 98 - 110 mmol/L [facility] CO2 29 20 - 32 mmol/L [facility] Calcium 9.7 8.6 - 10.3 mg/dL [facility] Baxter 08/26/2024 7:10 AM CDT 08/26/2024 7:12 AM CDT Toya Epps MD LAB BLOOD ORD ERABLES Final Result [facility] [address] [place] [address] * Colonoscopy (07/21/2024 11:54 AM CDT) Anatomical Region Laterality Modality Other Narrative Procedure Note Sammy Desir MD - 07/21/2024 11:54 AM CDT [facility] GI ENDOSCOPY Patient Name: Nhan Bundy Procedure Date: 07/21/2024 11:54 AM Date of : 1955 Admit Type: Outpatient Age: 68 Gender: Male Attending MD: Sammy Desir M.D. Room: [facility] ENDOSCOPY ROOM 06 Note Status: Finalized Procedure: [...] The scope was passed under direct vision.The [id number] colonoscope was introduced through theanus and advanced [...] years for surveillance. Sammy Desir M.D. Sammy Desri M.D. 07/21/2024 12:25:04 PM . Number of Addenda: 0 Note Initiated On: 07/21/2024 11:54 AM Recognized by the [place] [employer] for promoting quality in endoscopy Sammy Desir MD ENDOSCOPY PROCEDURES Final Resul t * (ABNORMAL) PSA screen (09/16/2023 9:36 AM CDT) PSA 5.41(H) < OR = 4.00 ng/mL [facility] Comment: The total PSA value from [...] ORD ERABLES Final Result [facility] [address] [address] [phone] * Lipid panel (08/14/2023 7:25 AM CDT) Cholesterol 129 <200 mg/dL [facility] HDL 52 > OR = 40 mg/dL [facility] Triglycerides 81 <150 mg/dL [facility] LDL 61 mg/dL (calc) [facility] Sahil Comment: Reference range: <100 Desirable range <100 mg/dL for primary prevention; <70 mg/dL for patients with CHD or diabetic patients with > or = 2 CHD risk factors. LDL-C is now calculated using the Will calculation, which is a validated novel method providing better accuracy than the Friedewald equation in the estimation of LDL-C. Tahir SS et al. NORMA. 2013;310(19): 8341-5807 (http://education.thinkingphones/faq/LST438) Chol/HDL ratio 2.5 <5.0 (calc) [facility] t[facility] Baxter Non-HDL, (LDL+VLDL) 77 <130 mg/dL (calc) [facility] Comment: For patients with diabetes plus 1 major ASCVD risk factor, treating to a non-HDL-C goal of <100 mg/dL (LDL-C of <70 mg/dL) is considered a therapeutic option. Blood 08/14/2023 7:25 AM CDT 08/14/2023 7:27 AM CDT Toya Epps MD LAB BLOOD ORD ERABLES Final Result [facility] [address] [place] [address] * DIABETES EYE EXAM (10/11/2022) SCRIBED DIABETIC DILATED EYE EXAM Normal Historical Provider HEALTH MAINTENANCE Final Result from Last 3 Months or Most Recently Relevant to Health Maintenance Insurance AETNA MEDICARE GOLD AETNA MEDICARE GOLD Care Teams Superintendent Terminal Relationship Specialty Start Date End Date Toya Epps MD [address] [place] [phone] PCP - General Internal Medicine 08/21/22
--- OUTSIDE RECORDS SUMMARY | 2025-01-05 01:07 | XMS_ITS | Clinical Summary ---
Author Organization [facility] Address [address] [place] [address] Care Team Providers Care Aligning Checker Name Role Phone Javier Denny MD Primary Care Provider [phone] Allergies No known active allergies Medications valsartan-hydro [...] Comments Blood Pressure 124/66 10/05/2020 8:13 AM ECHOCARDIOGRAPH TECH Pulse 57 10/05/2020 8:13 AM ECHOCARDIOGRAPH TECH Temperature 36.7 C (98.1 F) 10/05/2020 8:13 AM ECHOCARDIOGRAPH TECH Respiratory Rate 18 05/03/2020 11:4 0 AM CDT Oxygen Saturation 95% 05/03/2020 11: 40 AM CDT Inhaled Oxygen Concentration - - Weight 89.8 kg (198 lb) 10/05/2020 8:13 AM ECHOCARDIOGRAPH TECH Height 171.5 cm (5' 7.5 ) 10/05/2020 8: 13 AM ECHOCARDIOGRAPH TECH Patient reported Body Mass Index 30.55 10/05/2020 8:13 AM ECHOCARDIOGRAPH TECH Plan of Treatment Health Maintenance Due Date [...] this topic Medical Devices Implanted Type Area Investor Device Identifier Shelf Expiration Date Model / Serial / Lot Implant [employer]posite Distal Biceps Repair - [id number] Implanted:Qty: 1 on 05/03/2020 by Santo Diaz MD at [facility] Left: Shoulder [employer] 01/21/2022 [id number] / / [id number] [place] Arthrex Pushlock Biocomposite 2.9 X 12.5mm - [id number] Implanted:Qty: 4 on 05/03/2020 by Santo Diaz MD at [facility] Left: Shoulder [employer] 10/23/2021 [id number] / / [id number] Insurance [facility] Care Teams Aligning Checker Relationship Specialty Start Date End Date Javier Denny MD [address] [place] [address] PCP - General FAMILY PRACTICE 01/11/20
--- OUTSIDE RECORDS SUMMARY | 2025-01-05 01:07 | XMS_ITS | Encounter Summary ---
Author Organization [facility] Healthcare Address [address] [place] [address] Care Team Providers Care Front Office Specialist Name Role Phone Toya Epps MD Primary Care Provider Encounter Details Date Type Department Care Team (Late st Contact Info) Description 12/29/2023 Orders Only [facility] Information Management [address] [place] [id number] Scanning, Provider Social History Tobacco Use [...] on file Legal Sex Male 8:24 PM RELIGIOUS ASSISTANT Gender Identity Male 09/12/2021 8:13 PM CDT [...] on filedocumented in this encounter Care Teams Front Office Specialist Relationship Specialty Start Date End Date Toya Epps MD [address] [place] [phone] PCP - General Internal Medicine 08/21/22 documented as of this encounter
--- OUTSIDE RECORDS SUMMARY | 2025-01-05 01:07 | XMS_ITS | Encounter Summary ---
Author Organization [facility] Address [address] [place] [address] Care Team Providers Care Paradichlorobenzene Tender Name Role Phone Jaye Denny MD Primary Care Provider [phone] Encounter Details Date Type Department Care Team (Late st Contact Info) Description 10/19/2018 Lab Requisition [facility] Care DermPath Lab [address] [facility], [place] [id number] Myrtle Perea MD [address] [facility] 3 [place] [address] Social History Tobacco Use Types Packs/Day Years [...] DERMATOPATH TECHNICAL REPORT Routine 10/12/2018 12:00 AM SEARCH ADVERTISING STRATEGIST documented in this encounter Results * DERMATOPATH TECHNICAL REPORT (10/12/2018 12:00 AM SEARCH ADVERTISING STRATEGIST) Case Report Dermatopathology Report Case: [id number] Authorizing Provider: Myrtle Perea MD Collected: 10/12/2018 12:00 AM Pathologist: Ava Collier MD Received: 10/19/2018 06:17 AM Specimen: Skin, left lateral hand 10:50 AM [facility] DERMATOPATHOLOGY [facility]ORAT[facility] Clinical History VV vs other. Irritated. 10:50 AM [facility] DERMATOPATHOLOGY [facility]ORAT[facility] Gross Description Specimen A: Received is one formalin filled container labeled with the patient's name and designated left lateral hand. The specimen consists of a shave measuring [id number]. Jar 0. [facility] Dermatopathology Laboratory performed the technical component only. 10:50 AM [facility] DERMATOPATHOLOGY [facility]ORATORY Embedded Images 10:50 AM [facility] DERMATOPATHOLOGY [facility]ORAT[facility] DISCLAIMER An external and internal positive and negative controls are appropriate for the histochemical, immunohistochemical and immunofluorescence stain(s) in this case (if any), except where stated explicitly. The performance characteristics of the stain(s) cited in this report were developed and its performance characteristic determined by the Dermatopathology Laboratory at [facility]. These tests need not be, and therefore are not, approved by the [place] Food and Drug Administration. The tests are used for clinical purposes. 10:50 AM [facility] DERMATOPATHOLOGY LABORATORY Pathology/Cytolog y TISSUE SPECIMEN FROM SKIN / Unknown 10/12/2018 10/19/2018 6:17 AM [facility] Myrtle Perea MD LAB - PATHOLOGY/CYT OLOGY ORDERABLES DERMATOPATHOLOGY LABORATORY [facility] - Department of Dermatology [address] [place] [address] 5th Floor Lab [address] [phone] documented in this encounter Visit Diagnoses Not on filedocumented in this encounter Care Teams Paradichlorobenzene Tender Relationship Specialty Start Date End Date Jaye Denny MD [address] [place], [place] [phone] PCP - General 06/16/18 documented as of this encounter
--- OUTSIDE RECORDS SUMMARY | 2025-01-05 01:07 | XMS_ITS | Clinical Summary ---
Author Organization [facility] Address [address] [place] [phone] Care Team Providers Care Glass Crusher Name Role Phone Toya Epps MD Primary [...] 09/30/2022 Assessment & Plan (09/30/2022 11:59 AM HOME IMPROVEMENT ADVISOR): The patient has insomnia. We did discuss sleep restriction therapy as well as cognitive behavioral therapy for insomnia. I did give him copies of the 2 brochures that are published by the [place] [employer] entitled - How to sleep better and Understanding insomnia. STPEHEN (obstructive sleep apnea) 09/30/2022 Assessment & Plan (03/01/2024 9:07 AM CDT): The patient continue to wear his CPAP at 10 cm water pressure while sleeping. His DME is [employer]. Assessment & Plan (02/27/2023 11:34 AM CDT): The patient continue to wear his CPAP at 10 cm water pressure while sleeping. His DME is [employer]. Assessment & Plan (09/30/2022 11:58 AM HOME IMPROVEMENT ADVISOR): The patient continues to benefit from CPAP [...] complication, without long-term current use of insulin ([facility]/HCC) 08/20/2022 Type 2 diabetes mellitus with chronic kidney dis ease 08/20/2022 Benign hypertension with CKD (chronic kidney disease) stage III 08/09/2021 Stage 3a chronic kidney disease 08/09/2021 Hyperlipidemia 08/09/2021 KASPER (nonalcoholic steatohepatitis) 08/09/2021 S/P arthroscopy of left shoulder 05/02/2020 Elevated liver enzymes 04/06/2018 Encounters Date Type Department Care Team Description 10/25/2024 8:00 AM HOME IMPROVEMENT ADVISOR Office Visit [facility] Primary Care [address] [place] [phone] Rachael Pang NP Encounter for general adult medical examination with abnormal findings (Primary Dx); Screening for prostate cancer; Mixed hyperlipidemia; Controlled type 2 diabetes mellitus with stage 3 chronic kidney disease, without long-term current use of insulin ([facility]); Benign hypertension with CKD (chronic kidney disease) [...] on file Legal Sex Male 8:24 PM HOME IMPROVEMENT ADVISOR Gender Identity Male 09/12/2021 8:13 PM CDT Sexual Orientation Not on file Obstetrics History Last Filed Vital Signs Vital Sign Reading Time Taken Comments Blood Pressure 122/68 10/25/2024 7:49 AM HOME IMPROVEMENT ADVISOR Pulse 57 10/25/2024 7:49 AM HOME IMPROVEMENT ADVISOR Temperature 35.8 C (96.5 F) 10/25/2024 7:49 AM HOME IMPROVEMENT ADVISOR Respiratory Rate 16 07/21/2024 12:40 PM CDT Oxygen Saturation 98% 10/25/2024 7:49 AM HOME IMPROVEMENT ADVISOR Inhaled Oxygen Concentration - - Weight 83 kg (183 lb) 10/25/2024 7:49 AM HOME IMPROVEMENT ADVISOR Height 172.7 cm (5' 8 ) 10/25/2024 7:49 AM HOME IMPROVEMENT ADVISOR Body Mass Index 27.83 10/25/2024 7:49 AM HOME IMPROVEMENT ADVISOR Plan of Treatment Health Maintenance Due Date [...] complication, without long-term current use of insulin ([facility]) ([facility]) ALBUMIN CREATININE RATIO, URINE Routine 08/26/2024 7:10 [...] ORD ERABLES Final Result Performing Organization Address City/[facility]/ZIP Co de Phone Number [employer] [address] [address] * (ABNORMAL) Hemoglobin A1c (08/26/2024 7:10 AM CDT) Hgb A1C 6.4(H) <5.7 % of total Hgb [facility] Comment: For someone without known diabetes, [...] ORD ERABLES Final Result Performing Organization Address [facility] Co de Phone Number [facility] SoftwareUnm Children[facility] HospitalJessica [address] [place] [address] * (ABNORMAL) Basic metabolic panel (08/26/2024 7:10 AM CDT) Glucose 117(H) 65 - 99 mg/dL [facility] Comment: Fasting reference interval For someone without known diabetes, a glucose value between 100 and 125 mg/dL is consistent with prediabetes and should be confirmed with a follow-up test. BUN 20 7 - 25 mg/dL [facility] Creatinine 1.42(H) 0.70 - 1.35 mg/dL [facility] eGFR 54(L) > OR = [...] BLOOD ORD ERABLES Final Result [facility] [address] [place] [address] * Colonoscopy (07/21/2024 11:54 AM CDT) Anatomical Region Laterality Modality Other Narrative Procedure Note Sammy Desir MD - 07/21/2024 11:54 AM CDT [facility] GI ENDOSCOPY Patient Name: Nhan Bundy Procedure Date: 07/21/2024 11:54 AM Date of : 1955 Admit Type: Outpatient Age: 68 Gender: Male Attending MD: Sammy Desir M.D. Room: [facility] ENDOSCOPY ROOM 06 Note Status: Finalized Procedure: [...] The scope was passed under direct vision.The [id number]-[id number] colonoscope was introduced through theanus and advanced [...] On: 07/21/2024 11:54 AM Recognized by the [place] [employer] for promoting quality [...] compared to the equimolar-standardized total PSA (Man Lynn). Comparison of serial PSA results should be [...] MD LAB BLOOD ORD ERABLES Final Result [facility] [employer] [address] [address] * Lipid panel (08/14/2023 7:25 AM CDT) Cholesterol 129 <200 mg/dL [facility] HDL 52 > OR = 40 mg/dL [facility] Triglycerides 81 <150 mg/dL [facility] LDL 61 mg/dL (calc) [facility] Comment: Reference range: <100 Desirable range <100 mg/dL for primary prevention; <70 mg/dL for patients with CHD or diabetic patients with > or = 2 CHD risk factors. LDL-C is now calculated using the Will calculation, which is a validated novel method providing better accuracy than the Friedewald equation in the estimation of LDL-C. Tahir SS et al. NORMA. 2013;310(19): 8515-7803 (http://education.[employer]/faq/PTQ265) Chol/HDL ratio 2.5 <5.0 (calc) [facility] Non-HDL, (LDL+VLDL) 77 <130 mg/dL (calc) [facility] Comment: For patients with diabetes plus 1 major ASCVD risk factor, treating to a non-HDL-C goal of <100 mg/dL (LDL-C of <70 mg/dL) is considered a therapeutic option. Blood 08/14/2023 7:25 AM CDT 08/14/2023 7:27 AM CDT Toya Epps MD LAB BLOOD ORD ERABLES Final Result [facility] [address] [place] [address] * DIABETES EYE EXAM (10/11/2022) SCRIBED DIABETIC DILATED EYE EXAM Normal Historical Provider HEALTH MAINTENANCE Final Result from Last 3 Months or Most Recently Relevant to Health Maintenance Insurance AETNA MEDICARE GOLD AETNA MEDICARE GOLD Care Teams Glass Crusher Relationship Specialty Start Date End Date Toya Epps MD [address] [place] [address] PCP - General Internal Medicine 08/21/22
--- OUTSIDE RECORDS SUMMARY | 2025-01-05 01:07 | XMS_ITS | Referral Summary ---
Author Organization [facility] Address [address] [place] [address] Care Team Providers Care 8Th Grade Mathematics Teacher Name Role Phone Jaye Denny MD Primary Care Provider [phone] Source Comments [facility] Affiliates and Associated Physician Practices is amultiple site organization consisting of ambulatory clinics and hospital sitesin [place], [place], [place] and [place]. This disclosure is being madepursuant to the Care Everywhere program and may not contain all information available regarding this patient. Last updated 18.[facility] Allergies No known active allergies Medications * [...] Comments Blood Pressure 119/73 01/17/2020 2:41 PM STUDIO GRIP Pulse 51 01/17/2020 2:41 PM STUDIO GRIP Temperature 36.8 C (98.2 F) 01/17/2020 2:41 PM STUDIO GRIP Respiratory Rate 18 01/17/2020 2:41 PM STUDIO GRIP Oxygen Saturation 99% 01/17/2020 2:41 PM STUDIO GRIP Inhaled Oxygen Concentration - - Weight 89.8 kg (198 lb) 01/17/2020 2:41 PM STUDIO GRIP Height 170.2 cm (5' 7 ) 09/09/2019 9:11 AM CDT Body Mass Index 31.01 09/09/2019 9:11 AM CDT Plan of Treatment Not on file Goals Goal Patient Goal Type Associated Problems Recent Progress Patient-Stated? Author Medication Management General On track( 020 2:55 PM STUDIO GRIP) No Maral Mcclelland RN Note: Expected end [...] forrest Non-reac tive 04/06/2018 4:58 PM CDT [facility] Comment: Hepatitis C Antibody [...] Organization Address City/State/ZIP Co de Phone Number [address] [phone] from Last 3 Months or Most Recently Relevant to Health Maintenance Care Teams 8Th Grade Mathematics Teacher Relationship Specialty Start Date End Date Jaye Denny MD [address] [facility] [place] [phone] PCP - General 06/16/18
--- OUTSIDE RECORDS SUMMARY | 2025-01-05 01:07 | XMS_ITS | Continuity of Care Document ---
Author Organization [facility] Address [address] [place] [address] Phone Care Team Providers Care Soils Technician Name Role Phone Juancho Kam MD Unavailable [...] week 100 MG - Active Faxed to [employer] [phone] SYR BD 3ML 21G 1IN USE 1 SYRINGE TO INJECT WEEKLY TESTOSTERONE - Active MULTIVITAMIN TABS 1 QD-daily 100 MG - Active ADULT LOW STRENGTH 81MG TABS 1 QD 100 MG - Active Advance Directives Directive Yes / No Effective Date File Name No Information Encounters Encounter Description Practice Location Reason(s) For Visit Diagnoses Date Provider Providers Copied on Encounter [facility], [address], [place], [place], [address] , [place] tel: [phone] [facility] No Information 6 Eddy Dawkins. [address] [place], [place], [address], [place]. [phone] [facility], [address], [place], [place], [address] , [place] tel: [phone] [facility] Abscess of right leg 6 Eddy Dawkins. [address] [place], [place], [address], [place]. tel:[phone] Referring Provider: Juancho Son, [address] [place], [address] . tel:[phone] [facility], [address], [place], [place], [address] , tel:[phone] P[place] No Information 6 Eddy Dawkins. [address], [place], [address], [place]. [phone] [facility], [address], [place], [place], [address] , [place] tel: [phone] [place] No Information 6 Luissushma Juancho. [address], [place], [address], [place]. tel:[phone] [facility], [address], [place], [place], [address] , [place] tel: [phone] [facility] Obstructive sleep apnea (adult) (pediatric)Pure hypercholesterolemi aEpicondylitis, lateral, rightEncounter for general adult medical examination without abnormal findingsSpecial screening for malignant neoplasms, colonEncounter for immunization 5 Eddy Dawkins. [address], [place], [address], [place]. tel:[phone] Referring Provider: Juancho Son, [address] [place], [address] . tel:[phone] [facility], [address], [place], [place], [address] , [place] tel: [phone] [facility] Pure hypercholesterolemi aEncounter for long-term (current) use of other medicationsSpecial screening for malignant neoplasm of prostate 5 Eddy Dawkins. [address], [place], [address], [place]. tel:[phone] Referring Provider: Juancho Son, [address] [place], [address] . tel:[phone] [facility], [address], [place], [place], [address] , [place] tel: [phone] Pritesh No Information 5 Eddy Juancho. [address], [place], [address], [place]. [phone] [facility], [address], [place], [place], [address] , tel: [phone] [facility] Sleep Apnea 4 Eddy Juancho. [address], [place], [address], [place]. tel:[phone] [facility], [address], [place], [place], [address] , tel: [phone] [facility] Other testicular hypofunctionPure hypercholesterolemi aUnspecified sleep apneaRoutine general medical examination at a health care facility 4 Eddy Dawkins. [address], [place], [address], [place]. tel:[phone] Referring Provider: Juancho Son, [address] [place], [address] . tel:[phone] [facility], [address], [place], [place], [address] , [place] tel: [phone] P[facility] Encounter for screening for malignant neoplasm of prostateEncounter for long-term (current) use of other medicationsOther and unspecified hyperlipidemiaType II diabetes mellitus 4 Eddy Dawkins. [address] [place], [place], [address], [place]. tel:[phone] Referring Provider: Juancho Son, [address] [place], [address] . tel:[phone] [facility], [address], [place], [place], [address] , [place] tel: [phone] [facility] Diabetes mellitus without mention of complication, type II or unspecified type, not stated as uncontrolledHYPERLI PIDEMIA NEC/NOSObstructive sleep apnea (adult)(pediatric) 4 Eddy Dawkins. [address], [place], [address], [place]. tel:[phone] Referring Provider: Juancho Son, [address] [place], [address] . tel:[phone] [facility], [address], [place], [place], [address] , [place] tel: [phone] [facility] HYPERLIPIDEMIA NEC/NOSTESTICULAR HYPOFUNC NECRoutine general medical examination at [facility] apnea (adult)(pediatric)R outine general medical examination at a [facility] care facility 3 Eddy Dawkins. [address], [place], [address], [place]. tel:[phone] Referring Provider: Juancho Son, [address] [place], [address] . tel:[phone] [facility], [address], [place], [place], [address] , [place] tel: [phone] [facility] Diabetes mellitus without mention of complication, type II or unspecified type, not stated as uncontrolledOther testicular hypofunctionOther and unspecified hyperlipidemiaLong- term (current) use of other medicationsScreenin g for malignant neoplasms of the prostate 3 Eddy Dawkins. [address], [place], [address], [place]. tel:[phone] Referring Provider: Juancho Son, [address] [place], [address] . tel:[phone] [facility] [address], [place], [place], [address] , [place] tel: [phone] [facility] Pure hypercholesterolemi aTESTICULAR HYPOFUNC NECChondromalaciaAn nual physical examRoutine general medical examination at a health care facility 2 Eddy Dawkins. [address], [place], [address], [place]. tel:[phone] Referring Provider: Juancho Son, [address] [place], [address] . tel:[phone] [facility] [email or web address], [address], [place], [place], [address] , [place] tel: [phone] Prit[facility] Other and unspecified hyperlipidemiaOther testicular hypofunctionLong-te rm (current) use of other medicationsDiabetes mellitus without mention of complication, type II or unspecified type, not stated as uncontrolledScreeni ng for malignant neoplasms of the prostate Aug- 2 Eddy Dawkins. [address], [place], [address], [place]. tel:[phone] Referring Provider: Juancho Son, [address] [place], [address] . tel:[phone] [facility] [employer] [email or web address], [address], [place], [place], [address] , tel: [phone] P[facility] Other chronic nonalcoholic liver diseaseNonspecific elevation of levels of transaminase or lactic acid dehydrogenase (ldh)Obstructive sleep apnea (adult)(pediatric)O ther testicular hypofunctionDiabete s mellitus without mention of complication, type II or unspecified type, not stated as uncontrolled Jul- 1 Eddy Dawkins. [address] [place], [place], [address], [place]. tel:[phone] Referring Provider: Juancho Son, [address] [place], [address] . tel:[phone] [facility], [address], [place], [place], [address] , tel: [phone] [facility] Long-term (current) use of other medicationsScreenin g for malignant neoplasms of the prostateRoutine general medical examination at a health care facility Jul- 1 Eddy Dawkisn. [address] [place], [place], [address], [place]. tel:[phone] Referring Provider: Juancho Son, [address] [place], [address] . tel:[phone] [facility], [address], [place], [place], [address] , tel: [phone] [facility] No Information Sep-0 6201 1 Eddy JuanchoSarah Quesada [place], [address], [place]. tel:[phone] [facility], [address], [place], [place], [address] , [place] tel: [phone] [facility] CHRONIC LIVER DIS NECROUTINE MEDICAL EXAMSCREEN MAL NEOP-RECTUMPURE HYPERCHOLESTEROLEM Sep-0 8201 0 Eddy [address] [place], [address], [place]. tel: [phone] [facility], [address], [place], [place], [address] , [place] tel: [phone] [facility] LONG-TERM USE MEDS NECSCRN MALIG NEOP-PROSTATE Jun-3 1-201 0 Eddy JuanchoSarah Quesada [place], [address], [place]. tel: [phone] [facility], [address], [place], [place], [address] , [place] tel: [phone] [facility] HYPERLIPIDEMIA NEC/NOSMALAISE AND FATIGUE NECPURE HYPERGLYCERIDEMIA Oct-2 7200 9 Eddy [address] [place], [address], [place]. tel: [phone] [facility], [address], [place], [place], [address] , [place] tel: [phone] [facility] TESTICULAR HYPOFUNC NEC Aug-2 7200 9 Conversion [address]. [address] [place] [address], [place], [address], [place]. [facility], [address], [place], [place], [address] , [place] tel: [phone] [facility] ABN SERUM ENZY LEVEL NECFAM HX-KIDNEY DIS NECOBSTRUCTIVE SLEEP APNEA Apr-2 2-200 9 Eddy [address] [place], [address], [place]. tel:[phone] [facility], [address], [place], [place], [address] , [place] tel: [phone] [facility] POST-PROC STATES NECCHEST PAIN NEC Mar-0 9-200 7 Eddy [address] [place], [address], [place]. tel:[phone] [facility], [address], [place], [place], [address] , tel: [phone] [facility] PREOP EXAM UNSPCFROTATOR CUFF DIS NEC 6-200 7 De[place]razonia Q[address] [place], [place], [address], [place]. tel:[phone] [facility], [address], [place], [place], [address] , tel: [phone] [place] No Information Jan-0 1-200 6 Eddy [address] [place], [address], . tel:[phone] [facility], [address], [place], [place], [address] , tel: [phone] [facility] SLEEP APNEA NOS José Luis-3 0-200 3 [place] [address] [place], [address], [place]. tel:[phone] [facility], [address], [place], [place], [address] , tel: [phone] [facility] ABDMNAL PAIN RT UPR QUAD Jun-0 7-200 1 Conversion Doctor. [address] [facility], [place], [address], [place]. [facility], [address], [place], [place], [address] , tel: [phone] [facility] ELEV TRANSAMINASE/LDH Dec-0 8-200 1 Eddy [address] [place], [address], . tel:[phone] Family History Family Member Type Diagnosis Age At Onset Paternal grandfather Problem (finding) cancer of colon Mother Problem (finding) diabetes melli tus in first degree relative Mother Problem (finding) Cancer - Stomach Cancer Mother Problem (finding) POLYCYSTIC KIDNEY 67 Sister Problem (finding) MS Sister Problem (finding) MS Immunizations Vaccine Date Status Comments Tdap administered Source: New Imm unization Record influenza, injectable, quadrivalent, (3 years or older) administered Source: Other Regist ry influenza, injectable, quadrivalent, (3 years or older) administered Source: Other Provid er Payers Payer name Insurance type Covered green party ID Authorenioa marisabel(s) BCBS INACTIVE [employer]TH [employer]IANCE [id number] 1 Social History Type Description Quantity Date [...]
--- NOTE | 2025-01-05 08:32 | WPDHPUPDATE1 ---
History and Physical Update Update Date/Time: 01/05/25 08:32 History and Physical has been reviewed, including an updated exam of the patient. There are NO changes in the patient's condition. Risks, benefits, and alternatives have been discussed and questions answered. Patient agrees to proceed with procedure.
[2025-01-05] MEDS: LACTATED RINGERS 1,000 ML 30 ML IV CONT ×2 (09:05→13:58)
[2025-01-05] MEDS: ACETAMINOPHEN 500 MG TABLET 1000 MG PO (09:12)
[2025-01-05] MEDS: KETOROLAC 15 MG/ML VIAL (*BKC) IV PUSH (09:12)
--- NOTE | 2025-01-05 11:49 | P.PNAN_ITS ---
Anes - Initial Pre Proc Eval Procedure: Operation Date: 01/05/25 10:30 Proposed Procedures p Robotic Repair Incisional Hernia with Mesh - Robin Burkett MD Date/Time: 01/05/25 11:49 Surgeon: Robin Burkett MD Pre Op Diagnosis: incisional hernia with 2 cm defect Patient Data Age: 69 Gender: M Height: 1.7 m Weight: 82 kg Last Vital Signs Temp 97.1 F L 01/05/25 08:30 Pulse 44 L 01/05/25 08:30 Resp 18 01/05/25 08:30 BP 131/56 L 01/05/25 08:30 Pulse Ox 99 01/05/25 08:30 O2 Del Method Room Air 01/05/25 08:30 Allergies Allergy/AdvReac Type Severity Reaction Status Date / Time lisinopril AdvReac Unknown Cough Verified 01/05/25 08:58 tramadol AdvReac Other Verified 01/05/25 08:58 Home Medications ?Medication ?Instructions ?Recorded ?Confirmed ?Type rosuvastatin 5 mg tablet (Crestor) 5 mg PO DAILY #90 tabs 07/10/20 12/29/24 Rx ascorbic acid (vitamin C) 500 mg 500 mg PO 5XW 12/29/23 01/05/25 History capsule cholecalciferol (vitamin D3) 50 50 mcg PO 5XW 12/29/23 01/05/25 History mcg (2,000 unit) capsule multivitamin 1 tablet PO 2XW 12/29/23 01/05/25 History valsartan 80 1 tablet PO QAM 12/29/23 01/05/25 History mg-hydrochlorothiazide 12.5 mg tablet zinc 25 mg tablet 30 mg PO 5XW 12/29/23 01/05/25 History ibuprofen 200 mg tablet (Advil) 400 mg PO Q4H PRN pain 12/29/24 12/29/24 History Patient hx anesthesia problems: none Family hx anesthesia problems: none Results Review: All pre-operative results and documents have been reviewed as part of the pre- operative evaluation. [facility] Past Medical History Medical History Kidney disease Adenocarcinoma of prostate Type 2 diabetes mellitus with complication, without long-term current use of insulin Surgical History Surgical History History of appendectomy 1970 Family History Family History Mother Diabetes mellitus Family history of obesity Depression Hypertension Cancer Father Patient's father is in good health Grandparent Carcinoma of colon Diabetes mellitus Social History Social History Smoking status: Never smoker Alcohol intake: current Drinks per week: 1 Substance use: never Do You Feel Safe in your Home?: No Lack of Transportation: No Lack of Food: Never True Current Housing: I Have Housing Concerned About Future Housing: No Difficulty Paying Gas/Electric Bills: No Difficulty Paying for Meds: No Currently Unemployed: No Education: Master's Degree or Higher Difficulty w/ Childcare or Family Care: No Living arrangements: with family Additional living arrangements comments: Spiritual care concerns: No Anes - Eval Final PreProcedure Day of Procedure 01/05/25 11:49 Patient weight: normal Heart: regular rate and rhythm Lungs: clear to auscultation Airway: Mallampati scale class II Neurological: alert and oriented Last oral intake: >/= 8 hours ASA classification: III Emergent: no Anesthetic plan: proceed Anesthesia type and monitoring: general ETT and standard monitoring Results Review: All pre-operative results and documents have been reviewed as part of the pre- operative evaluation. Informed Consent: The patient's anesthetic plan and its attendant risks and benefits were discussed with the patient/family/POA. Questions were solicited and answers provided to the satisfaction of the patient/family/POA.
[2025-01-05] MEDS: ceFAZolin 2 GM/D5W 50 ML 2 GM/50 ML BAG IVPB (11:55)
[2025-01-05] MEDS: BUPIVACAINE/EPINEPHRINE 0.5% 30 ML VIAL INFILTRATE (12:54)
--- NOTE | 2025-01-05 14:10 | P.OP_ITS ---
Procedure Note - Detailed Date of Procedure 01/05/25 Pre-op Diagnosis incisional hernia with 2 cm defect Post-op Diagnosis Same (Incisional hernia with 4 cm defect) Procedure Performed Robotic laparoscopic repair incisional hernia with 4 cm defect with mesh Surgeon Robin Burkett MD Command And Control Debra MENDEZ Anesthesia General and Local Indications Patient is a 69-year-old man who developed prostate cancer. He underwent nerve- sparing robotic prostatectomy about 1 year ago. He has developed an incisional hernia in the instruction port just above the umbilicus. He is taken to surgery now for robotic laparoscopic repair with mesh Findings There was a 2nd hernia defect about a cm caudal to the palpable hernia. Second defect was small only about a cm. The original defect was 2-2-1/2 cm. I had not been able to appreciate the 2nd defect on exam. Both hernias were repaired for a combined defect of 4 cm. Description of Procedure Patient was taken to surgery and induced into general anesthesia. A bump was placed under his left flank and he was flexed in the mid section to widen the space between the left costal margin and the iliac crest. Prep and drape was carried out. The initial 5 mm trocar was placed under the left costal margin. This was applied Medical optical trocar. Once we had intraperitoneal location, insufflation was carried out. When the abdomen was distended to 15 cm, it was noted that this trocar was quite a ways from the costal margin. We then placed the lateral robotic 8 mm port for our camera. The left lateral lower quadrant 8 mm port was placed under direct visualization. We then moved the camera to the lower robotic port. I placed the final 8 mm robotic port closer to the costal margin rather than at the place that the applied Medical 5 mm port had been located. I then changed insufflation to the subcostal robotic port and removed the 5 mm port. The skin there was closed temporarily with some 3-0 Vicryl suture to avoid CO2 leakage. We then brought the robotic arms in and position the robot. The camera was docked and targeted. The 2 working arms were likewise positioned with the appropriate instruments. The surgeon then went to the robotic console. The palpable defect was easily seen but there was a 2nd defect just caudal to the 1st and about a cm away. This had minimal properitoneal fat within it. I took down some of the omental adhesions to the abdominal wall. I then took down some properitoneal fat in the area of the 2 hernia defects. I also took down some of the ligament of Treitz so that our mesh would have good contact with the abdominal wall. The 2 defects together were approximately 4 cm. I used an 0 Stratafix suture and, in running fashion, closed the 2 defects in longitudinal direction. There was some residual Strattice fix suture which I simply tagged the needle to the anterior abdominal wall. Two 0 V lock suture were then brought into the field. Following this, a 15 x [address] mesh was rolled and brought into the field. I used the needle from the Stratafix and passed this through the center of the mesh. The mesh was then gently pulled up to the anterior abdominal wall over the strata fix until it was snug over the hernia closure. The mesh was oriented and I you have used some of the residual Stratafix to fix the left side of the mesh to the anterior abdominal wall with running suture. I then used the to 0 V lock and starting on the patient's right side, used running suture circumferentially around the circumference of the mesh to secure it to the anterior abdominal wall. We used 3 V lock suture in this fashion but still had some of the circumference of the mesh to suture. A fourth V lock suture was then placed in the abdominal wall and used to complete the running circumferential attachment of the mesh. There was still residual 0 Stratafix suture. This was run across the mesh to further affix its center to the anterior abdominal wall and promote more prompt adherence. At this point, the mesh was sutured securely in the hernia defects had been closed. We removed the needles from the abdominal cavity. All looked good with no evidence of bleeding or other problems. The robotic instruments were removed and the robot was undocked. Trocars were removed and CO2 gas was evacuated. All for the trocar sites were closed with subcuticular 4-0 Monocryl skin suture. The wounds were dressed with Exofin surgical adhesive. The patient was then awakened and taken to recovery in good condition. Sponge and needle counts were correct x2. Implants 10 x [address] mesh Estimated Blood Loss -3 Drains No Packing No Pathology None sent Complications None Condition Stable Disposition PACU [facility] Billing Surgery - Charge Forward: Surgery Billing (Robotic laparoscopic repair incisional hernia with 4 cm defect with mesh)
[2025-01-05] MEDS: fentaNYL CITRATE INJ (*CRX) 100 MCG/2 ML VIAL 25 MCG IV PUSH ×4 (15:03→16:15)
[2025-01-05] MEDS: oxyCODONE HCL (*CRX) 5 MG TAB IR PO (15:46)
== END 2025-01-05 16:40 | disposition home or self-care (01) ==
PROVIDERS: PCP Internal Medicine; Visit Provider Surgery
PROC: (CPT 49593; principal; 2025-01-05 10:30)
DX: K43.2 Incisional hernia without obstruction or gangrene (principal); Z85.46 Personal history of malignant neoplasm of prostate; E11.9 Type 2 diabetes mellitus without complications
CPT/HCPCS: 49593; S2900; A9270; C1781; J0461; J0690; J1100; J1596; J1885; J2003; J2250; J2405; J2704; J3010; J7030; J7120